=== PATIENT | male | born 1955 | race Caucasian/White ===

== ENCOUNTER 2017-04-17 12:38 | Observation (INO) | payer OTHER ==
[~2017-04-17] VITALS: Ht 175.3 cm; Wt 93.2 kg
[~2017-04-17 12:38] MED LIST: ACET325; ACET325 PO; BISA10S; BISA10S PR; BISA5EC; BISA5EC PO; CALCA500CH PO; CALCAVITDA; CHLORHEXIDINE PO; CHOL10002 PO; CLINGEL TOP; Cipro500 MG PO; DOC250; DOC250 PO; GLYCERIN1 EACH PR; GUAI100SY PO; Golytely Solu4000 ML PO; HYDACE5 PO; HYDACE7.5; HYDR-86 PO; Hydrocodone-Ap1 EA20 PO; LAVAP17G PO; LINZESS145 MCG PO; MAGOXI400; MAGOXI400 PO; MULVITA; MULVITMIND PO; Magnesium Citr296 ML PO; Milk Of Ma400 MG/5 M PO; ONDA4 PO; ONDA4ODT MM; POLY17UD PO; PROACE100; QUET100; QUET100 PO; QUET25 PO; QUET300; QUET300 PO; QUETIAPINE FUMA50 MG PO; RXONDA4ODT MM; SERT100; SERT100 PO; SORB70L; Sorbitol473 ML PO
[2017-04-17 13:02] LABS: Source, Urine Catheter
[2017-04-17 13:08] LABS: Bilirubin, Urine Neg (Neg); Blood, Urine 5+ (Neg); Glucose Qualitative, Urine Neg (Neg); Ketones, Urine Neg (Neg); Leukocyte Esterase, Urine 1+ (Neg); Nitrite, Urine Neg (Neg); Protein, Urine 2+ (Neg); Urobilinogen, Urine NORM (Normal)
[2017-04-17 13:18] LABS: Appearance, Urine Hazy (Clear); Color, Urine Red (P-Yellow)
[2017-04-17 13:19] LABS: Triple Phosphate Crystals Few /hpf
[2017-04-17 13:20] LABS: Red Blood Cells, Urine TNTC /hpf (0-2)
[2017-04-17 13:21] LABS: Bacteria Mod /hpf; Squamous Epithelial Cells Not Seen /hpf (Few)
[2017-04-17 13:22] LABS: BASOPHILS ABSOLUTE AUTO 0.01 K/mm3 (0.00-0.23); BASOPHILS PERCENT AUTO 0 % (0-2); EOSINOPHILS ABSOLUTE AUTO 0.01 K/mm3 (0.00-0.68); EOSINOPHILS PERCENT AUTO 0 % (0-6); Hematocrit 42.2 % (37.0-53.0); Hemoglobin 13.8 g/dL (13.5-17.5); IMMATURE GRAN ABSOLUTE AUTO 0.05 K/mm3 (0.00-0.10); IMMATURE GRAN PERCENT AUTO 0 % (0-1); LYMPHOCYTES ABSOLUTE AUTO 0.69 K/mm3 (0.84-5.20); LYMPHOCYTES PERCENT AUTO 5 % (21-46); MONOCYTES ABSOLUTE AUTO 0.57 K/mm3 (0.16-1.47); MONOCYTES PERCENT AUTO 4 % (4-13); Mean Corpuscular HGB 29.7 pg (26.0-34.0); Mean Corpuscular HGB Conc 32.7 g/dL (31.5-36.5); Mean Corpuscular Volume 91 fL (80-100); Mean Platelet Volume 8.9 fL (9.1-12.4); NEUTROPHILS ABSOLUTE AUTO 11.81 K/mm3 (1.96-9.15); NEUTROPHILS PERCENT AUTO 90 % (41-73); Platelet Count 231 K/mm3 (150-400); RDW Coefficient Variation 13.3 % (11.7-14.2); RDW Standard Deviation 43.8 fL (35.1-46.3); Red Blood Cell Count 4.65 M/mm3 (4.30-5.90); White Blood Cell Count 13.14 K/mm3 (4.00-11.30)
[2017-04-17 13:37] LABS: Alanine Aminotransfer (ALT/SGP 12 U/L (12-78); Albumin, Blood 2.9 g/dL (3.4-5.0); Albumin/Globulin Ratio 0.8 (0.8-1.8); Alk Phos 70 U/L (50-136); Anion Gap 9 mmol/L (6-16); Aspartate Aminotrans (AST/SGOT 13 U/L (12-37); Bilirubin, Total 0.3 mg/dL (0.1-1.0); Blood Urea Nitrogen 20 mg/dL (8-24); Bun/Creatinine Ratio 26.6 (12.0-20.0); CO2, Blood 23 mmol/L (21-32); Calcium, Blood 8.1 mg/dL (8.5-10.1); Chloride, Blood 111 mmol/L (98-108); Creatinine, Blood 0.75 mg/dL (0.60-1.20); Globulin, Blood 3.7 g/dL (2.2-4.0); Glomerular Filtration Rate >60 (60-); Glucose, Blood 135 mg/dL (70-99); Potassium, Blood 3.9 mmol/L (3.5-5.5); Sodium, Blood 143 mmol/L (136-145); Total Protein, Blood 6.6 g/dL (6.4-8.2)
[2017-04-17 13:49] LABS: Influenza A Negative (NEGATIVE); Influenza B Negative (NEGATIVE)
[2017-04-17 14:09] LABS: International Normalized Ratio 1.06
--- NOTE | 2017-04-17 18:08 | NUR ---
ADMIT PT ADMITTED FROM ED, 3X ASSIST TO SLIDE TRANSFER PT TO HOSPITAL BED, PER PT HE IS WHEELCHAIR BOUND AT BASELINE DUE TO ADVANCED MS. LUE IS CONTRACTED, SEVERE HYPEREXTENSION OF LEFT INDEX FINGER NOTED WELL, VERY MINIMAL MOVEMENT OF BLE, DENIES NUMBNESS OR TINGLING. SHORT 1-2 WORD ANSWERS, IS A&OX4, ABLE TO MAKE NEEDS KNOWN. VSS, PT ORIENTED TO ROOM, CALL LIGHT AND POC, IV FLUIDS FROM ED INFUSING ON TRANSFER, WILL FINISH CURRENT BAG, WILL CONTINUE TO MONITOR.
--- NOTE | 2017-04-18 04:43 | NUR ---
04/18/17 0445 SHIFT SUMMARY SLEPT WELL IV INFUSING AT 100 ML PER HOUR.URINE REMAINS BROWN. HAD A VERY SOFT INCONTINENT STOOL AND I HAVE HELD HIS LAXATIVES AND mIRLAX. WOUND ON LEFT BUTTOCK WAS CLEANED AND PICTURES WERE TAKEN AND MEPLIZ WAS APPLIED. IV BOTH INFILTERED AND WERE REMOVED AND NEW IV WAS PLACED IN RIGHT HAND. + HE IS ABLE TO USE HIS RIGHT HAND AND USE CALL LIGHT.
[2017-04-18 04:45] LABS: Hematocrit 40.1 % (37.0-53.0); Mean Corpuscular HGB 29.6 pg (26.0-34.0); Mean Corpuscular HGB Conc 32.4 g/dL (31.5-36.5); Mean Corpuscular Volume 91 fL (80-100); Platelet Count 226 K/mm3 (150-400); RDW Coefficient Variation 13.4 % (11.7-14.2); RDW Standard Deviation 44.6 fL (35.1-46.3); Red Blood Cell Count 4.39 M/mm3 (4.30-5.90); White Blood Cell Count 11.24 K/mm3 (4.00-11.30)
[2017-04-18 05:07] LABS: Anion Gap 5 mmol/L (6-16); Blood Urea Nitrogen 20 mg/dL (8-24); Bun/Creatinine Ratio 26.8 (12.0-20.0); CO2, Blood 27 mmol/L (21-32); Calcium, Blood 8.4 mg/dL (8.5-10.1); Chloride, Blood 114 mmol/L (98-108); Creatinine, Blood 0.75 mg/dL (0.60-1.20); Glomerular Filtration Rate >60 (60-); Glucose, Blood 87 mg/dL (70-99); Potassium, Blood 4.2 mmol/L (3.5-5.5); Sodium, Blood 146 mmol/L (136-145)
[2017-04-18 10:58] LABS: Anion Gap 7 mmol/L (6-16); Blood Urea Nitrogen 19 mg/dL (8-24); Bun/Creatinine Ratio 24.4 (12.0-20.0); CO2, Blood 23 mmol/L (21-32); Calcium, Blood 8.7 mg/dL (8.5-10.1); Chloride, Blood 111 mmol/L (98-108); Creatinine, Blood 0.78 mg/dL (0.60-1.20); Glomerular Filtration Rate >60 (60-); Glucose, Blood 134 mg/dL (70-99); Sodium, Blood 141 mmol/L (136-145)
--- NOTE | 2017-04-18 16:39 | NUR ---
Shift summary Patient catheter was irrigated twice this shift. Sediment in Tian tubing. MD aware. Patient was up in a recliner for most of the day. Tian catheter appears to be draining at urethra. MD aware. Patient has denied pain. Sore on coccyx covered in Mepilex. Photos in chart. Call light within patient reach.
--- NOTE | 2017-04-19 05:00 | NUR ---
04/19/17 0500 shift summary no problem since the beginning of the shift with finch cath < no Irrigation> no c\o pain. no c\o of pain or discomfort. dressing on buttock no changed.
[2017-04-19 05:27] LABS: Albumin, Blood 2.5 g/dL (3.4-5.0); Anion Gap 8 mmol/L (6-16); Blood Urea Nitrogen 14 mg/dL (8-24); CO2, Blood 25 mmol/L (21-32); Calcium, Blood 8.2 mg/dL (8.5-10.1); Chloride, Blood 109 mmol/L (98-108); Glomerular Filtration Rate >60 (60-); Glucose, Blood 105 mg/dL (70-99); Phosphorus, Blood 4.3 mg/dL (2.5-4.9); Potassium, Blood 3.2 mmol/L (3.5-5.5); Sodium, Blood 142 mmol/L (136-145)
--- NOTE | 2017-04-19 14:32 | NUR ---
DISCHARGING TO [facility]. REPORT CALLED TO KRISTI. MECHANICAL LIFT IN TO W/C. TO [facility] VIA W/C.
[2017-04-28] MEDS ORDERED: MEROPENEM-1 GM/50 ML IV (12:08)
[2018-02-06] MEDS ORDERED: CLIN1TS (17:34)
[2018-02-06] MEDS ORDERED: Biscolax10 MG PR (17:35)
[2018-02-06] MEDS ORDERED: CLIN1TS TOP (17:36)
[2018-02-06] MEDS ORDERED: ENEMA READY TO133 ML PR (17:36)
[2018-02-06] MEDS ORDERED: Magnesium Citr296 ML PO (17:37)
[2018-02-06] MEDS ORDERED: PERIDEX15 ML PO (17:47)
[2018-02-06] MEDS ORDERED: Norco 10-325 T1 EACH PO (17:47)
[2018-02-22] MEDS ORDERED: Hair, Skin & N1 EACH PO (13:40)
[2018-02-22] MEDS ORDERED: SORBITOL1 ML PO (13:45)
[2018-02-22] MEDS ORDERED: Calcium Carbon500 M1 PO (13:48)
[2018-03-10] MEDS ORDERED: GLYCPS PR (22:38)
[2018-03-11] MEDS ORDERED: Dulcolax5 MG PO (02:33)
[2018-03-14] MEDS ORDERED: DOXY100 PO (13:02)
[2018-03-14] MEDS ORDERED: SACC250C PO (13:02)
[2018-03-14] MEDS ORDERED: LEVFLO500 PO (13:02)
[2018-04-03] MEDS ORDERED: QUET25 PO (10:25)
[2018-04-03] MEDS ORDERED: Keflex500 MG PO (12:44)
[2018-04-03] MEDS ORDERED: LEVFLO500 PO (12:44)
== END 2017-04-19 14:25 ==
LOC: ER 12:38 → MEDS 12:39 → ENPENDDIS 04-19 08:30 → MEDS 04-19 14:25
PROVIDERS: Emergency Medicine; ADMIT Internal Medicine
DX: E86.0 Dehydration (principal); E87.2 Acidosis; N13.30 Unspecified hydronephrosis; N39.0 Urinary tract infection, site not specified; R33.9 Retention of urine, unspecified; G35 Multiple sclerosis; F32.3 Major depressive disorder, single episode, severe with psychotic features; G89.4 Chronic pain syndrome; K59.09 Other constipation; Z90.89 Acquired absence of other organs; Z88.2 Allergy status to sulfonamides; Z79.899 Other long term (current) drug therapy; Z98.890 Other specified postprocedural states
CPT/HCPCS: 36415; 51702; 71010; 76770; 80048; 80053; 80069; 81001; 83605; 85025; 85027; 85610; 85730; 87040; 87077; 87086; 87804; 93005; 93010; 96361; 96365; 96372; 99285; G0378; J0696; J1650; J7030; J7070

== ENCOUNTER → 2017-09-25 | Outpatient (CLI) | payer OTHER ==
[~2017-09-25] MED LIST changes: +LEVO750 PO; +MEROPENEM-1 GM/50 ML IV; +Tylenol325 MG PO
[2017-09-25 13:46] LABS: Stool Occult Bld Immuno 1 Positive (NEGATIVE)
== END ==
LOC: LAB 12:06 → LAB SHORT 12:06
PROVIDERS: Registered Nurse
DX: Z12.11 Encounter for screening for malignant neoplasm of colon (principal)
CPT/HCPCS: G0328

== ENCOUNTER → 2017-09-25 | Outpatient (CLI) | payer OTHER ==
[2017-09-25 22:52] LABS: Appearance, Urine Cloudy (Clear); Bilirubin, Urine Neg (Neg); Blood, Urine 4+ (Neg); Color, Urine Yellow (P-Yellow); Glucose Qualitative, Urine Neg (Neg); Ketones, Urine Neg (Neg); Leukocyte Esterase, Urine 3+ (Neg); Nitrite, Urine Pos (Neg); Protein, Urine 2+ (Neg); Specific Gravity, Urine 1.015 (1.003-1.022); Urobilinogen, Urine NORM (Normal)
[2017-09-25 23:07] LABS: White Blood Cells, Urine TNTC /hpf (0-5)
[2017-09-25 23:08] LABS: Bacteria Many /hpf; Squamous Epithelial Cells Not Seen /hpf (Few)
== END ==
LOC: EDSTATUS 11:35 → LAB RH 21:40
PROVIDERS: Registered Nurse
DX: N39.0 Urinary tract infection, site not specified (principal)
CPT/HCPCS: 81001; 87077; 87086; 87147; 87186

== ENCOUNTER 2017-09-27 16:31 | Emergency (ER) | payer OTHER ==
[~2017-09-27] VITALS: Ht 185.4 cm; Wt 90.7 kg
[~2017-09-27 16:31] MED LIST changes: -LEVO750 PO; -Tylenol325 MG PO
[2017-09-27 17:10] LABS: BASOPHILS ABSOLUTE AUTO 0.06 K/mm3 (0.00-0.23); BASOPHILS PERCENT AUTO 1 % (0-2); EOSINOPHILS ABSOLUTE AUTO 0.21 K/mm3 (0.00-0.68); EOSINOPHILS PERCENT AUTO 2 % (0-6); Hematocrit 43.8 % (37.0-53.0); Hemoglobin 14.6 g/dL (13.5-17.5); IMMATURE GRAN ABSOLUTE AUTO 0.05 K/mm3 (0.00-0.10); IMMATURE GRAN PERCENT AUTO 1 % (0-1); LYMPHOCYTES ABSOLUTE AUTO 2.53 K/mm3 (0.84-5.20); LYMPHOCYTES PERCENT AUTO 23 % (21-46); MONOCYTES PERCENT AUTO 6 % (4-13); Mean Corpuscular HGB Conc 33.3 g/dL (31.5-36.5); Mean Corpuscular Volume 87 fL (80-100); Mean Platelet Volume 8.8 fL (9.1-12.4); NEUTROPHILS ABSOLUTE AUTO 7.56 K/mm3 (1.96-9.15); NEUTROPHILS PERCENT AUTO 68 % (41-73); Platelet Count 284 K/mm3 (150-400); RDW Standard Deviation 40.9 fL (35.1-46.3); Red Blood Cell Count 5.03 M/mm3 (4.30-5.90); White Blood Cell Count 11.11 K/mm3 (4.00-11.30)
[2017-09-27 17:30] LABS: Alanine Aminotransfer (ALT/SGP 19 U/L (12-78); Albumin, Blood 3.5 g/dL (3.4-5.0); Albumin/Globulin Ratio 0.7 (0.8-1.8); Alk Phos 77 U/L (50-136); Anion Gap 7 mmol/L (6-16); Aspartate Aminotrans (AST/SGOT 12 U/L (12-37); Bilirubin, Total 0.4 mg/dL (0.1-1.0); Blood Urea Nitrogen 20 mg/dL (8-24); Bun/Creatinine Ratio 28.1 (12.0-20.0); CO2, Blood 28 mmol/L (21-32); Calcium, Blood 9.1 mg/dL (8.5-10.1); Chloride, Blood 105 mmol/L (98-108); Creatinine, Blood 0.71 mg/dL (0.60-1.20); Globulin, Blood 4.8 g/dL (2.2-4.0); Glomerular Filtration Rate >60 (60-); Glucose, Blood 90 mg/dL (70-99); Potassium, Blood 3.9 mmol/L (3.5-5.5); Sodium, Blood 140 mmol/L (136-145); Total Protein, Blood 8.3 g/dL (6.4-8.2); Troponin I <0.015 ng/mL (0.000-0.040)
[2017-09-27] MEDS ORDERED: LEVO750 PO (18:54)
[2017-09-27] MEDS ORDERED: Tylenol325 MG PO (18:54)
== END 2017-09-27 20:50 | disposition home or self-care (01) ==
LOC: ER 16:31
PROVIDERS: Emergency Medicine
DX: J18.9 Pneumonia, unspecified organism (principal); N39.0 Urinary tract infection, site not specified; G35 Multiple sclerosis; F32.9 Major depressive disorder, single episode, unspecified
CPT/HCPCS: 36415; 51798; 71045; 80053; 83605; 84484; 85025; 93005; 93010; J1956; J7120

== ENCOUNTER → 2017-11-08 | Outpatient (CLI) | payer OTHER ==
[~2017-11-08] MED LIST changes: +LEVO750 PO; +Tylenol325 MG PO
[2017-11-08 14:12] LABS: Source, Urine Catheter
[2017-11-08 14:27] LABS: Appearance, Urine Cloudy (Clear); Bilirubin, Urine Neg (Neg); Blood, Urine 5+ (Neg); Color, Urine Yellow (P-Yellow); Glucose Qualitative, Urine Neg (Neg); Ketones, Urine Neg (Neg); Leukocyte Esterase, Urine 3+ (Neg); Nitrite, Urine Pos (Neg); Protein, Urine 3+ (Neg); Specific Gravity, Urine 1.015 (1.003-1.022); Urobilinogen, Urine NORM (Normal)
[2017-11-08 15:09] LABS: Triple Phosphate Crystals Mod /hpf
[2017-11-08 15:10] LABS: Calcium Oxalate Crystals Few /hpf; White Blood Cells, Urine TNTC /hpf (0-5)
[2017-11-08 15:11] LABS: Bacteria Many /hpf; Squamous Epithelial Cells Not Seen /hpf (Few)
== END ==
LOC: EDSTATUS 09:17 → LAB RH 12:00
PROVIDERS: Registered Nurse
DX: N39.0 Urinary tract infection, site not specified (principal); R31.9 Hematuria, unspecified
CPT/HCPCS: 81001; 87077; 87086; 87186

== ENCOUNTER → 2017-12-01 | Outpatient (CLI) | payer OTHER ==
[2017-12-02 13:27] LABS: Stool Occult Bld Immuno 1 Negative (NEGATIVE)
== END ==
LOC: LAB SHORT 15:00 → LAB 15:00
PROVIDERS: Registered Nurse
DX: Z12.11 Encounter for screening for malignant neoplasm of colon (principal)
CPT/HCPCS: G0328

== ENCOUNTER → 2018-01-21 | Outpatient (CLI) | payer OTHER ==
[2018-01-21 09:52] LABS: Source, Urine Catheter
[2018-01-21 10:16] LABS: Appearance, Urine Turbid (Clear); Bilirubin, Urine Neg (Neg); Blood, Urine 5+ (Neg); Color, Urine Red (P-Yellow); Glucose Qualitative, Urine Neg (Neg); Ketones, Urine Neg (Neg); Leukocyte Esterase, Urine 3+ (Neg); Nitrite, Urine Neg (Neg); Protein, Urine 3+ (Neg); Specific Gravity, Urine 1.015 (1.003-1.022); Urobilinogen, Urine NORM (Normal)
[2018-01-21 10:26] LABS: Bacteria Many /hpf; Red Blood Cells, Urine TNTC /hpf (0-2); Squamous Epithelial Cells Few /hpf (Few); White Blood Cells, Urine TNTC /hpf (0-5)
== END ==
LOC: LAB RH 09:00 → LAB SHORT 09:00
PROVIDERS: Registered Nurse
DX: R31.9 Hematuria, unspecified (principal)
CPT/HCPCS: 81001; 87077; 87086; 87186

== ENCOUNTER → 2018-02-01 | Outpatient (CLI) | payer OTHER ==
[~2018-02-01] MED LIST changes: +Biscolax10 MG RC; +CLIN1TS; +CVS DISPOSABLE399 ML; +HYDR1TAB94; +MAGNESIUM CITR100 MG; +MERREM1 GM IV; +MIRALAX17 GM PO; +PERIDEX15 ML; +QUET200 PO; +VENL75ER PO
[2018-02-05 13:36] LABS: Stool Occult Bld Immuno 1 Negative (NEGATIVE)
== END ==
LOC: LAB SHORT 14:22 → LAB 14:22 → LAB SHORT 02-04 14:22 → LAB FUT 09-24 13:45
PROVIDERS: Registered Nurse
DX: Z12.11 Encounter for screening for malignant neoplasm of colon (principal)
CPT/HCPCS: G0328

== ENCOUNTER → 2018-02-04 | Outpatient (CLI) | payer OTHER ==
[2018-02-04 10:07] LABS: Source, Urine Catheter
[2018-02-04 11:06] LABS: Bilirubin, Urine Neg (Neg); Blood, Urine 4+ (Neg); Glucose Qualitative, Urine Neg (Neg); Ketones, Urine Neg (Neg); Leukocyte Esterase, Urine 3+ (Neg); Nitrite, Urine Neg (Neg); Protein, Urine 3+ (Neg); Urobilinogen, Urine NORM (Normal)
[2018-02-04 11:32] LABS: Appearance, Urine Turbid (Clear); Color, Urine Yellow (P-Yellow)
[2018-02-04 11:38] LABS: Red Blood Cells, Urine 0-2 /hpf (0-2); Squamous Epithelial Cells Few /hpf (Few)
[2018-02-04 11:39] LABS: Amorphous Mod (0-Heavy)
[2018-02-04 11:43] LABS: Bacteria Mod /hpf; White Blood Cells, Urine TNTC /hpf (0-5)
== END ==
LOC: LAB RH 10:06 → EDSTATUS 11:43
PROVIDERS: Registered Nurse
DX: N39.0 Urinary tract infection, site not specified (principal)
CPT/HCPCS: 81001; 87077; 87086; 87186

== ENCOUNTER 2018-02-06 17:17 | Inpatient (IN) | payer OTHER ==
[~2018-02-06] VITALS: Ht 188 cm; Wt 83.5 kg
[~2018-02-06 17:17] MED LIST changes: -Biscolax10 MG RC; -CLIN1TS; -CVS DISPOSABLE399 ML; -HYDR1TAB94; -MAGNESIUM CITR100 MG; -MERREM1 GM IV; -MIRALAX17 GM PO; -PERIDEX15 ML; -QUET200 PO; -VENL75ER PO
[2018-02-06] MEDS ORDERED: CLIN1TS ×2 (17:34→17:36)
[2018-02-06] MEDS ORDERED: ACET325 PO (17:35)
[2018-02-06] MEDS ORDERED: Biscolax10 MG RC (17:35)
[2018-02-06] MEDS ORDERED: CVS DISPOSABLE399 ML (17:36)
[2018-02-06] MEDS ORDERED: BISA5EC PO (17:36)
[2018-02-06] MEDS ORDERED: LINZESS145 MCG PO (17:37)
[2018-02-06] MEDS ORDERED: MAGNESIUM CITR100 MG (17:37)
[2018-02-06] MEDS ORDERED: MAGOXI400 PO (17:38)
[2018-02-06] MEDS ORDERED: Milk Of Ma400 MG/5 M PO (17:40)
[2018-02-06] MEDS ORDERED: MIRALAX17 GM PO (17:40)
[2018-02-06 17:43] LABS: BASOPHILS ABSOLUTE AUTO 0.05 K/mm3 (0.00-0.23); BASOPHILS PERCENT AUTO 1 % (0-2); EOSINOPHILS ABSOLUTE AUTO 0.03 K/mm3 (0.00-0.68); EOSINOPHILS PERCENT AUTO 0 % (0-6); Hemoglobin 12.5 g/dL (13.5-17.5); IMMATURE GRAN ABSOLUTE AUTO 0.03 K/mm3 (0.00-0.10); IMMATURE GRAN PERCENT AUTO 0 % (0-1); LYMPHOCYTES ABSOLUTE AUTO 0.97 K/mm3 (0.84-5.20); LYMPHOCYTES PERCENT AUTO 11 % (21-46); MONOCYTES ABSOLUTE AUTO 0.56 K/mm3 (0.16-1.47); MONOCYTES PERCENT AUTO 6 % (4-13); Mean Corpuscular HGB 29.2 pg (26.0-34.0); Mean Corpuscular HGB Conc 32.1 g/dL (31.5-36.5); Mean Corpuscular Volume 91 fL (80-100); Mean Platelet Volume 8.3 fL (9.1-12.4); NEUTROPHILS ABSOLUTE AUTO 7.13 K/mm3 (1.96-9.15); NEUTROPHILS PERCENT AUTO 81 % (41-73); Platelet Count 231 K/mm3 (150-400); RDW Coefficient Variation 12.8 % (11.7-14.2); RDW Standard Deviation 42.5 fL (35.1-46.3); Red Blood Cell Count 4.28 M/mm3 (4.30-5.90); White Blood Cell Count 8.77 K/mm3 (4.00-11.30)
[2018-02-06] MEDS ORDERED: HYDR1TAB94 (17:47)
[2018-02-06] MEDS ORDERED: PERIDEX15 ML (17:47)
[2018-02-06] MEDS ORDERED: VENL75ER PO (17:48)
[2018-02-06] MEDS ORDERED: QUET200 PO (17:48)
[2018-02-06] MEDS ORDERED: QUET25 PO (17:48)
[2018-02-06 17:53] LABS: International Normalized Ratio 1.05; Prothrombin Time Results 10.8 Sec (9.7-11.5)
[2018-02-06 18:02] LABS: Alanine Aminotransfer (ALT/SGP 23 U/L (12-78); Albumin, Blood 2.8 g/dL (3.4-5.0); Albumin/Globulin Ratio 0.5 (0.8-1.8); Alk Phos 85 U/L (50-136); Anion Gap 5 mmol/L (6-16); Aspartate Aminotrans (AST/SGOT 17 U/L (12-37); Bilirubin, Total 0.4 mg/dL (0.1-1.0); Blood Urea Nitrogen 16 mg/dL (8-24); Bun/Creatinine Ratio 17.6 (12.0-20.0); CO2, Blood 30 mmol/L (21-32); Calcium, Blood 8.8 mg/dL (8.5-10.1); Chloride, Blood 104 mmol/L (98-108); Creatinine, Blood 0.91 mg/dL (0.60-1.20); Globulin, Blood 5.1 g/dL (2.2-4.0); Glomerular Filtration Rate >60 (60-); Glucose, Blood 102 mg/dL (70-99); Sodium, Blood 139 mmol/L (136-145); Total Protein, Blood 7.9 g/dL (6.4-8.2)
[2018-02-07 05:26] LABS: Hematocrit 36.1 % (37.0-53.0); Hemoglobin 11.6 g/dL (13.5-17.5); Mean Corpuscular HGB 29.1 pg (26.0-34.0); Mean Corpuscular HGB Conc 32.1 g/dL (31.5-36.5); Mean Corpuscular Volume 91 fL (80-100); Mean Platelet Volume 8.8 fL (9.1-12.4); Platelet Count 204 K/mm3 (150-400); RDW Coefficient Variation 12.9 % (11.7-14.2); RDW Standard Deviation 42.8 fL (35.1-46.3); Red Blood Cell Count 3.99 M/mm3 (4.30-5.90)
[2018-02-07 05:50] LABS: Alanine Aminotransfer (ALT/SGP 22 U/L (12-78); Albumin, Blood 2.4 g/dL (3.4-5.0); Albumin/Globulin Ratio 0.5 (0.8-1.8); Alk Phos 75 U/L (50-136); Anion Gap 7 mmol/L (6-16); Aspartate Aminotrans (AST/SGOT 17 U/L (12-37); Bilirubin, Total 0.5 mg/dL (0.1-1.0); Blood Urea Nitrogen 13 mg/dL (8-24); CO2, Blood 25 mmol/L (21-32); Calcium, Blood 7.6 mg/dL (8.5-10.1); Chloride, Blood 111 mmol/L (98-108); Creatinine, Blood 0.81 mg/dL (0.60-1.20); Globulin, Blood 4.6 g/dL (2.2-4.0); Glomerular Filtration Rate >60 (60-); Glucose, Blood 88 mg/dL (70-99); Sodium, Blood 143 mmol/L (136-145)
[2018-02-10 04:41] LABS: BASOPHILS ABSOLUTE AUTO 0.04 K/mm3 (0.00-0.23); BASOPHILS PERCENT AUTO 1 % (0-2); EOSINOPHILS ABSOLUTE AUTO 0.25 K/mm3 (0.00-0.68); EOSINOPHILS PERCENT AUTO 5 % (0-6); Hematocrit 42.5 % (37.0-53.0); IMMATURE GRAN ABSOLUTE AUTO 0.05 K/mm3 (0.00-0.10); IMMATURE GRAN PERCENT AUTO 1 % (0-1); LYMPHOCYTES PERCENT AUTO 46 % (21-46); MONOCYTES PERCENT AUTO 13 % (4-13); Mean Corpuscular HGB 28.7 pg (26.0-34.0); Mean Corpuscular HGB Conc 32.9 g/dL (31.5-36.5); NEUTROPHILS ABSOLUTE AUTO 1.58 K/mm3 (1.96-9.15); NEUTROPHILS PERCENT AUTO 34 % (41-73); RDW Coefficient Variation 12.4 % (11.7-14.2); RDW Standard Deviation 39.7 fL (35.1-46.3); Red Blood Cell Count 4.87 M/mm3 (4.30-5.90); White Blood Cell Count 4.62 K/mm3 (4.00-11.30)
[2018-02-10 04:45] LABS: Mean Corpuscular Volume 87 fL (80-100); Mean Platelet Volume 9.8 fL (9.1-12.4); Platelet Count 194 K/mm3 (150-400)
[2018-02-10 05:00] LABS: Anion Gap 7 mmol/L (6-16); Blood Urea Nitrogen 11 mg/dL (8-24); CO2, Blood 28 mmol/L (21-32); Calcium, Blood 8.5 mg/dL (8.5-10.1); Chloride, Blood 107 mmol/L (98-108); Creatinine, Blood 0.61 mg/dL (0.60-1.20); Glomerular Filtration Rate >60 (60-); Glucose, Blood 94 mg/dL (70-99); Potassium, Blood 3.9 mmol/L (3.5-5.5); Sodium, Blood 142 mmol/L (136-145)
[2018-02-11] MEDS ORDERED: MAGOXI400 PO (15:37)
[2018-02-11] MEDS ORDERED: MIRALAX17 GM PO (15:39)
[2018-02-11] MEDS ORDERED: MERREM1 GM IV (15:41)
== END 2018-02-11 17:41 | DRG 871 ==
LOC: ER 17:17 → MEDS 20:25
PROVIDERS: Emergency Medicine; Hospitalist; Internal Medicine
DX: A41.51 Sepsis due to Escherichia coli [E. coli] (principal); G82.50 Quadriplegia, unspecified; N13.30 Unspecified hydronephrosis; N39.0 Urinary tract infection, site not specified; D63.8 Anemia in other chronic diseases classified elsewhere; G35 Multiple sclerosis; F32.9 Major depressive disorder, single episode, unspecified; G89.4 Chronic pain syndrome; Z16.12 Extended spectrum beta lactamase (ESBL) resistance; Z74.01 Bed confinement status; Z87.440 Personal history of urinary (tract) infections; Z79.899 Other long term (current) drug therapy; Z88.2 Allergy status to sulfonamides
CPT/HCPCS: 36415; 71045; 76770; 80048; 80053; 83605; 85025; 85027; 85610; 85730; 87040; 87077; 87186; 93005; 93010; 96365; 99285-25; J0694; J0697; J1650; J2185; J7030; J7040

== ENCOUNTER → 2018-04-25 | Outpatient (CLI) | payer OTHER ==
[~2018-04-25] MED LIST changes: +Biscolax10 MG PR; +CLIN1TS; +CLIN1TS TOP; +Calcium Carbon500 M1 PO; +DOXY100 PO; +Dulcolax5 MG PO; +ENEMA READY TO133 ML PR; +GLYCPS PR; +Hair, Skin & N1 EACH PO; +Keflex500 MG PO; +LEVFLO500 PO; +MERREM1 GM IV; +MIRALAX17 GM PO; +Norco 10-325 T1 EACH PO; +PERIDEX15 ML PO; +QUET200 PO; +SACC250C PO; +SORBITOL1 ML PO; +VENL75ER PO
[2018-04-25 09:25] LABS: Appearance, Urine Cloudy (Clear); Bilirubin, Urine Neg (Neg); Blood, Urine 5+ (Neg); Color, Urine Yellow (P-Yellow); Glucose Qualitative, Urine Neg (Neg); Ketones, Urine Neg (Neg); Leukocyte Esterase, Urine Neg (Neg); Nitrite, Urine Neg (Neg); Protein, Urine 3+ (Neg); Urobilinogen, Urine NORM (Normal)
[2018-04-25 10:01] LABS: Red Blood Cells, Urine 25-50 /hpf (0-2); Squamous Epithelial Cells Few /hpf (Few); White Blood Cells, Urine 0-2 /hpf (0-5)
[2018-04-25 10:02] LABS: Amorphous Heavy (0-Heavy); Bacteria Few /hpf; Calcium Oxalate Crystals Rare /hpf
== END ==
LOC: LAB RH 08:24 → EDSTATUS 09:31
PROVIDERS: Registered Nurse
DX: N39.0 Urinary tract infection, site not specified (principal)
CPT/HCPCS: 81001

== ENCOUNTER → 2018-05-10 | Outpatient (CLI) | payer OTHER ==
[2018-05-10 10:46] LABS: Source, Urine Catheter
[2018-05-10 10:57] LABS: Bilirubin, Urine Neg (Neg); Blood, Urine 3+ (Neg); Glucose Qualitative, Urine Neg (Neg); Ketones, Urine Neg (Neg); Leukocyte Esterase, Urine 3+ (Neg); Nitrite, Urine Pos (Neg); Protein, Urine 3+ (Neg); Specific Gravity, Urine 1.015 (1.003-1.022); Urobilinogen, Urine 1+ (Normal)
[2018-05-10 11:12] LABS: Color, Urine Yellow (P-Yellow)
[2018-05-10 11:13] LABS: Appearance, Urine Cloudy (Clear)
[2018-05-10 11:14] LABS: Bacteria Many /hpf; Red Blood Cells, Urine 50-100 /hpf (0-2); Squamous Epithelial Cells Not Seen /hpf (Few); White Blood Cells, Urine TNTC /hpf (0-5)
== END ==
LOC: EDSTATUS 09:33 → LAB RH 10:22
PROVIDERS: Nurse Practitioner Family
DX: N39.0 Urinary tract infection, site not specified (principal)
CPT/HCPCS: 81001; 87077; 87086; 87186

== ENCOUNTER 2019-02-11 18:39 | Inpatient (IN) | payer OTHER ==
[~2019-02-11] VITALS: Ht 177.8 cm; Wt 86.3 kg
[~2019-02-11 18:39] MED LIST changes: -Biscolax10 MG PR; -GLYCPS PR
[2019-02-11 19:17] LABS: Base Excess Venous -0.5 mmol/L; Bicarbonate Venous 21.9 mmol/L (24.0-30.0); PCO2 Venous 62.8 mmHg (38-42); PO2 Venous 44.8 mmHg (38-42)
[2019-02-11 19:17] LABS: BASOPHILS ABSOLUTE AUTO 0.03 K/mm3 (0.00-0.23); BASOPHILS PERCENT AUTO 1 % (0-2); EOSINOPHILS ABSOLUTE AUTO 0.07 K/mm3 (0.00-0.68); EOSINOPHILS PERCENT AUTO 2 % (0-6); Hematocrit 49.3 % (37.0-53.0); Hemoglobin 15.7 g/dL (13.5-17.5); Mean Corpuscular HGB 28.9 pg (26.0-34.0); Mean Corpuscular HGB Conc 31.8 g/dL (31.5-36.5); Mean Corpuscular Volume 91 fL (80-100); Platelet Count 283 K/mm3 (150-400); RDW Coefficient Variation 13.1 % (11.7-14.2); RDW Standard Deviation 43.6 fL (35.1-46.3); Red Blood Cell Count 5.43 M/mm3 (4.30-5.90); White Blood Cell Count 4.78 K/mm3 (4.00-11.30)
[2019-02-11 19:18] LABS: pH Blood Venous 7.24 (7.34-7.37)
[2019-02-11 19:22] LABS: IMMATURE GRAN ABSOLUTE AUTO 0.04 K/mm3 (0.00-0.10); IMMATURE GRAN PERCENT AUTO 1 % (0-1); LYMPHOCYTES ABSOLUTE AUTO 1.03 K/mm3 (0.84-5.20); LYMPHOCYTES PERCENT AUTO 22 % (21-46); MONOCYTES ABSOLUTE AUTO 0.02 K/mm3 (0.16-1.47); MONOCYTES PERCENT AUTO 0 % (4-13); NEUTROPHILS ABSOLUTE AUTO 3.59 K/mm3 (1.96-9.15); NEUTROPHILS PERCENT AUTO 75 % (41-73)
[2019-02-11 19:34] LABS: BAND PERCENT MAN 10 % (0-8); BASOPHILS PERCENT MAN 0 % (0-2); EOSINOPHILS PERCENT MAN 0 % (0-6); LYMPHOCYTES PERCENT MAN 19 % (21-46); METAMYELOCYTE ABSOLUTE MAN 0.04 K/mm3 (0.00-0.00); METAMYELOCYTE PERCENT MAN 1 % (0-0); MONOCYTES PERCENT MAN 0 % (4-13); NEUTROPHILS ABSOLUTE MAN 3.82 K/mm3 (1.96-9.15); SEG NEUTROPHILS PERCENT MAN 70 % (41-73); TOTAL CELLS COUNTED 100
[2019-02-11 19:38] LABS: Alanine Aminotransfer (ALT/SGP 18 U/L (12-78); Albumin, Blood 3.7 g/dL (3.4-5.0); Albumin/Globulin Ratio 0.8 (0.8-1.8); Alk Phos 124 U/L (50-136); Anion Gap 8 mmol/L (6-16); Aspartate Aminotrans (AST/SGOT 15 U/L (12-37); Bilirubin, Total 0.7 mg/dL (0.1-1.0); Blood Urea Nitrogen 19 mg/dL (8-24); Bun/Creatinine Ratio 24.2 (12.0-20.0); CO2, Blood 26 mmol/L (21-32); Chloride, Blood 105 mmol/L (98-108); Creatinine, Blood 0.79 mg/dL (0.60-1.20); Globulin, Blood 4.5 g/dL (2.2-4.0); Glomerular Filtration Rate >60 (60-); Glucose, Blood 104 mg/dL (70-99); Potassium, Blood 4.3 mmol/L (3.5-5.5); Sodium, Blood 139 mmol/L (136-145); Total Protein, Blood 8.2 g/dL (6.4-8.2); Troponin I <0.015 ng/mL (0.000-0.040)
[2019-02-11] MEDS ORDERED: QUET200 PO (19:47)
[2019-02-11 22:01] LABS: PCO2 Arterial 32.9 mmHg (35-45); PO2 Arterial 83.9 mmHg (80-100)
--- NOTE | 2019-02-11 23:30 | NUR ---
ADMIT NOTE; ADMIT 64 YEAR OLD MALE TO ICU 11 TO HOSPITALIST CHRISTIANO [employer]ION[employer] ENGINEER PER GERONIMO VIA ER. DR HAN AT [facility] TRANSFER TP BED USING SLIDER SHEET. INTUBATED SEDATED AND RESTRAINED. VENT SETTINGS AC 16, TV 450, FIO2 50% PEEP 5, RATE 24-26, SPO2 86% LUNG SOUNDS CLEAR UPPER LOBES WITH DECREASED SOUNDS IN THE BASES. SX MOD AMT THIN CLKEAR SECREATIONS. WITH ORAL CARE. ABDPMEN SOFT ROUND WITH BOWEL SOUNDS FOUR QUADS. BEARD REPLACED BY SINDHU GUERRERO AND FLAQUITOAN SENT PAS TO L LEG PPP NO EDEMA NOTED. CONTINUE TO MONITOR AND REPORT CHANGE IN PATIENT CONDITION
[2019-02-12 00:16] LABS: Hematocrit 40.8 % (37.0-53.0); Hemoglobin 13.3 g/dL (13.5-17.5)
[2019-02-12 00:34] LABS: Source, Urine Catheter
[2019-02-12 00:37] LABS: Appearance, Urine Cloudy (Clear); Bilirubin, Urine Neg (Neg); Blood, Urine 5+ (Neg); Color, Urine Red (P-Yellow); Glucose Qualitative, Urine Neg (Neg); Ketones, Urine 1+ (Neg); Leukocyte Esterase, Urine 3+ (Neg); Nitrite, Urine Neg (Neg); Protein, Urine 3+ (Neg); Urobilinogen, Urine NORM (Normal)
[2019-02-12 00:48] LABS: Amorphous Mod (0-Heavy); Bacteria Many /hpf; Red Blood Cells, Urine TNTC /hpf (0-2); Squamous Epithelial Cells Rare /hpf (Few); White Blood Cells, Urine TNTC /hpf (0-5)
[2019-02-12] MEDS ORDERED: BISA10S PR (01:28)
[2019-02-12] MEDS ORDERED: ONDA4 PO (01:29)
[2019-02-12 03:11] LABS: Bicarbonate Venous 20.1 mmol/L (24.0-30.0); PCO2 Venous 33.6 mmHg (38-42); PO2 Venous 66.6 mmHg (38-42); pH Blood Venous 7.37 (7.34-7.37)
[2019-02-12 03:43] LABS: BASOPHILS ABSOLUTE AUTO 0.05 K/mm3 (0.00-0.23); BASOPHILS PERCENT AUTO 0 % (0-2); Hemoglobin 12.9 g/dL (13.5-17.5); LYMPHOCYTES ABSOLUTE AUTO 0.38 K/mm3 (0.84-5.20); LYMPHOCYTES PERCENT AUTO 2 % (21-46); MONOCYTES PERCENT AUTO 1 % (4-13); Mean Corpuscular HGB 29.2 pg (26.0-34.0); Mean Corpuscular HGB Conc 32.3 g/dL (31.5-36.5); Mean Corpuscular Volume 91 fL (80-100); Mean Platelet Volume 9.3 fL (9.1-12.4); Platelet Count 156 K/mm3 (150-400); RDW Coefficient Variation 13.2 % (11.7-14.2); RDW Standard Deviation 44.4 fL (35.1-46.3); Red Blood Cell Count 4.42 M/mm3 (4.30-5.90); White Blood Cell Count 25.21 K/mm3 (4.00-11.30)
[2019-02-12 03:45] LABS: EOSINOPHILS ABSOLUTE AUTO 0.01 K/mm3 (0.00-0.68); EOSINOPHILS PERCENT AUTO 0 % (0-6); IMMATURE GRAN ABSOLUTE AUTO 0.27 K/mm3 (0.00-0.10); IMMATURE GRAN PERCENT AUTO 1 % (0-1); NEUTROPHILS PERCENT AUTO 96 % (41-73)
[2019-02-12 04:06] LABS: Alanine Aminotransfer (ALT/SGP 27 U/L (12-78); Albumin, Blood 2.6 g/dL (3.4-5.0); Albumin/Globulin Ratio 0.8 (0.8-1.8); Alk Phos 91 U/L (50-136); Anion Gap 10 mmol/L (6-16); Aspartate Aminotrans (AST/SGOT 58 U/L (12-37); Bilirubin, Total 0.5 mg/dL (0.1-1.0); Blood Urea Nitrogen 23 mg/dL (8-24); Bun/Creatinine Ratio 23.9 (12.0-20.0); CO2, Blood 20 mmol/L (21-32); Calcium, Blood 7.2 mg/dL (8.5-10.1); Chloride, Blood 113 mmol/L (98-108); Creatinine, Blood 0.96 mg/dL (0.60-1.20); Globulin, Blood 3.2 g/dL (2.2-4.0); Glomerular Filtration Rate >60 (60-); Glucose, Blood 132 mg/dL (70-99); Potassium, Blood 3.4 mmol/L (3.5-5.5); Sodium, Blood 143 mmol/L (136-145); Total Protein, Blood 5.8 g/dL (6.4-8.2)
--- NOTE | 2019-02-12 06:30 | NUR ---
SHIFT SUMMARY: REMAINS INTUBATED SEDATED AND RESTRAINED.. VENT SETTINGS AC 16, TV 450, FIO2 50% PEEP 5, RATE 17-22, SPO2 95-97% LUNG SOUNDS CLEAR UPPER LOBES WITH DECREASED SOUNDS IN THE BASES. OG TO LIS PATENT WITH BROWN LIQUID RETURN. MODERATE AMOUNT THIN CLEAR SECREATIONS SX PER ETT AND SMALL AMT THIN CLEAR ORAL SECREATIONS WITH ORAL CARE. ABDOMENS SOFT ROUND WITH BOWEL SOUNDS FOUR QUADS. HAS HAD TWO LG SOFT BROWN STOOLS THIS SHIFT. BEARD PATENT CONTINUING TO DRAIN BLOODY URINE. PAS TO L LEG ( R LEG HAS B/P CUFF) skin warm /dry. NO EDEMA NOTED PEDAL PULSES PRESENT. LUE CONTRACTED ALSO LOWER EXTREMITIES HOWEVER NOT SEVERE. REMAINS IN SOFT WRIST RESTRAINTS TO PREVENT INADVERTENT REMOVAL OF LINES TUBES. CONTINUE TO MONITOR AND REPORT CHANGE IN PATIENT CONDITION
--- NOTE | 2019-02-12 08:00 | NUR ---
INITIAL ASSESSMENT PATIENT INTUBATED AND ON MINIMAL AMOUNT OF SEDATION. PATIENT RESPONDS TO VERBAL STIMULI, TRACKS NURSE, FOLLOWS SIMPLE COMMANDS. PATIENT ABLE TO WIGGLE BILAT TOES AND FINGERS ON R HAND. PATIENT UNABLE TO MOVE LEFT FINGERS. L HAND CONTRACTED WITH INDEX FINGER STICKING STRAIGHT OUT. HX OF MULTIPLE SCLEROSIS. PATIENT CHAIR BOUND AT BASELINE. PATIENT ALERT AND ORIENTED AT BASELINE PER BROTHER, TOREY. BILAT FOOT DROP NOTED. NO SIGNS OF PAIN OR DISCOMFORT NOTED AT THIS TIME. PATIENT HAS TEMP OF 101.4 DEGREES FAHRENHEIT. PATIENT SATTING 90% AND GREATER ON VENT SETTINGS OF AC 16, TV 450, PEEP 5, FIO2 50%. LUNGS CLEAR IN UPPER LOBES, DIMINISHED IN LOWER LOBES. SMALL AMOUNT OF THICK, YELLOW SPUTUM BEING SUCTIONED FROM ETT. PATIENT IN ST, HR IN THE LOW 100S. SBP 80S TO 90S. ABDOMEN SEVERELY DISTENDED, SOFT, NONTENDER, WITH TYMPANIC BS NOTED. PATIENT HAS BEEN HAVING XL, SOFT, BROWN BMS. OG REMOVED NOT ADVANCING EASILY AND UNABLE TO HEAR BUBBLING IN STOMACH WITH INTRODUCTION OF AIR. DR. HAN INFORMED. TEMP PROBE BEARD IN PLACE, DRAINING BURGUNDY COLORED URINE WITH LARGE AMOUNTS OF SEDIMENT NOTED. PENIS IS BLEEDING FROM URETHRA. NS INFUSING AT 15O MLS/ HOUR. PROPOFOL AT 10 MCG/ KG/ MINUTE. BED LOW, CALL LIGHT IN REACH. WILL CONTINUE TO MONITOR PATIENT FREQUENTLY THROUGHOUT SHIFT.
--- NOTE | 2019-02-12 11:04 | NUR ---
SPOKE TO DR. HAN AND UPDATED ON PATIENT STATUS. INFORMED OF AM POTASSIUM LEVEL OF 3.4. INFORMED THAT PATIENT'S PENIS IS BLEEDING. INFORMED THAT SBP IN THE 80S AND THAT PROPOFOL HAS BEEN BETWEEN 10 AND 15 MCG/ KG/ MINUTE BP IS SOFT. INFORMED THAT PATIENT HAS POSTIVE BLOOD CULTURES RETURED. INFORMED THAT PRIMARY NURSE AND CHARGE NURSE UNABLE TO PLACE OG CONTINUES TO STOP SLIGHTLY AFTER ESOPHAGUS. LOOKED AT XRAY AND STATED THAT THE FIRST TUBE SEEMED TO STOP IN ESOPHAGUS WELL. STATES SHE WILL CONSULT GI TO SEE PATIENT TOMORROW FOR ESOPHAGEAL OBSTRUCTION. 1 L NS BOLUS ORDERED FOR BP.
--- NOTE | 2019-02-12 12:53 | NUR ---
PATIENT'S BROTHER, TOREY, INFORMED OF PICC LINE INSERTION PROCEDURE. BROTHER STATES HE IS OKAY WITH IT. ALSO RECEIVED INFORMATION FOR PATIENT'S SON.
--- NOTE | 2019-02-12 16:00 | NUR ---
PATIENT RESTING QUIETLY IN BED UPON ENTERING ROOM. REMAINS ON PROPOFOL- PROP AT 10 MCG/ KG/ MINUTE. PATIENT SATTING 90% AND GREATER ON SAME VENT SETTINGS. PATIENT IN SR, HR IN THE 90S. BP STABLE ON LEVOPHED DRIP. PATIENT HAS TEMP OF 101.6- FAN PLACED ON PATIENT. BEARD NOW DRAINING DARK AMANDA COLORED URINE WITH SEDIMENT NOTED. NO OTHER ACUTE CHANGES TO NOTE ON AT THIS TIME. WILL CONTINUE TO MONITOR.
--- NOTE | 2019-02-12 19:20 | NUR ---
SHIFT SUMMARY PATIENT REMAINED INTUBATED AND ON SEDATION. PATIENT HAD TMAX OF 102.0 DEGREES FAHRENHEIT THIS SHIFT. PRN TYLENOL GIVEN. PATIENT REMAINED RESPONDING TO VERBAL STIMULI AND FOLLOWING SOME SIMPLE COMMANDS. CONTINUED TO SUCTION SMALL TO MODERATE AMOUNTS OF THICK, YELLOW SPUTUM FROM ETT. PATIENT DECREASED ON FIO2 FROM 50 TO 45% ON VENTILATOR. PATIENT REMAINED IN SR TO ST. BP SOFT THIS AM. PICC PLACED AND LEVOPHED STARTED. LEVOPHED ON STANDBY BY END OF SHIFT. PATIENT HAD 3 BMS THIS SHIFT. 2 BMS WERE XL IN SIZE, BROWN, SOFT. OG REMOVED THIS AM WOULD NOT ADVANCE PROPERLY. DR. HAN INFORMED AND GI CONSULT ORDERED FOR ESOPHAGEAL OBSTRUCTION. BEARD DRAINED BURGUNDY TO DARK AMANDA COLORED URINE WITH MUCH SEDIMENT NOTED. ADEQUATE OUTPUT. BLEEDING FROM URETHRA CONTINUES BUT IS MUCH LESS THAN AT BEGINNING OF SHIFT. NS REMAINS INFUSING AT 150 MLS/ HOUR, PROPOFOL AT 15 MCG/ KG/ MINUTE. 40 MEQ KCL GIVEN THIS SHIFT FOR POTASSIUM LEVEL OF 3.4. PATIENT APPEARS COMFORTABLE AT THIS TIME. REPORT HAS BEEN GIVEN TO ONCOMING MEDICATION TECHNICIAN NURSE.
--- NOTE | 2019-02-12 20:57 | NUR ---
ASSUMED CARE OF PT, REPORT RCV'D FROM YOLANDA DUTTA. PT INTUBATED AND SEDATED. VENT SETTINGS AC 16/450/5/45%, PROPOFOL 30 MCG/KG/MIN. PT ALERT TO VERBAL STIMULI AND ABLE TO FOLLOW DIRECTIONS (SQUEEZES RIGHT HAND", PT ASSISTS WITH ORAL CARE AND NOD APPROPRIATELY IN REQPONSE TO QUESTIONS. LEVOPHED RESTARTED AT 2 MCG/MIN D/T HYPOTENSION FROM INCREASE IN SEDATION. PER DR HAN, NO WEANING NECESSARY PT WILL NOT BE EXTUBATED UNTIL GI SEES PT. DR. AC CONTACTED FOR CONSULT. PT SKIN APPEARS PINK/FLUSHED AND FEELS WARM TO THE TOUCH. PT FEBRILE WITH TEMP OF 101.5 CURRENTLY. FAN PLACED ON BEDSIDE AND COOL CLOTHES APPLIED TO SKIN. WILL MEDICATE NECESSARY. TEMP BEARD IN PLACE, CATH CARE PERFORMED. MEATUS BLOODY, NO CHANGE SINCE ADMISSION PER DAYSHIFT NURSE. SEE FULL SHIFT ASSESSMENT.
[2019-02-13 04:14] LABS: Hematocrit 34.8 % (37.0-53.0); Hemoglobin 11.4 g/dL (13.5-17.5); Mean Corpuscular HGB 29.6 pg (26.0-34.0); Mean Corpuscular HGB Conc 32.8 g/dL (31.5-36.5); Mean Corpuscular Volume 90 fL (80-100); Mean Platelet Volume 10.1 fL (9.1-12.4); Platelet Count 114 K/mm3 (150-400); RDW Coefficient Variation 14.1 % (11.7-14.2); RDW Standard Deviation 47.1 fL (35.1-46.3); Red Blood Cell Count 3.85 M/mm3 (4.30-5.90); White Blood Cell Count 35.56 K/mm3 (4.00-11.30)
[2019-02-13 04:27] LABS: Anion Gap 7 mmol/L (6-16); Blood Urea Nitrogen 18 mg/dL (8-24); Bun/Creatinine Ratio 24.3 (12.0-20.0); CO2, Blood 22 mmol/L (21-32); Calcium, Blood 7.2 mg/dL (8.5-10.1); Chloride, Blood 114 mmol/L (98-108); Creatinine, Blood 0.74 mg/dL (0.60-1.20); Glomerular Filtration Rate >60 (60-); Glucose, Blood 93 mg/dL (70-99); Sodium, Blood 143 mmol/L (136-145)
[2019-02-13 04:39] LABS: BAND PERCENT MAN 22 % (0-8); BASOPHILS PERCENT MAN 0 % (0-2); EOSINOPHILS PERCENT MAN 0 % (0-6); LYMPHOCYTES ABSOLUTE MAN 1.42 K/mm3 (0.84-5.20); LYMPHOCYTES PERCENT MAN 4 % (21-46); MONOCYTES ABSOLUTE MAN 1.77 K/mm3 (0.16-1.47); MONOCYTES PERCENT MAN 5 % (4-13); NEUTROPHILS ABSOLUTE MAN 32.35 K/mm3 (1.96-9.15); SEG NEUTROPHILS PERCENT MAN 69 % (41-73); TOTAL CELLS COUNTED 100
[2019-02-13 04:59] LABS: PCO2 Arterial 32.5 mmHg (35-45); PO2 Arterial 80.6 mmHg (80-100); pH Blood Arterial 7.41 (7.35-7.45)
--- NOTE | 2019-02-13 06:00 | NUR ---
SHIFT SUMMARY NO ACUTE CHANGES OVERNIGHT. PT ON 15-20 MCG/KG/MIN OF PROPOFOL, WAS ALERT TO VERBAL STIMULATION AND ABLE TO FOLLOW SIMPLE COMMANDS. LEVOPHED @ 3 MCG/MIN TO MAINTAIN MAP>60. TMAX OF 102.0, CURRENT TEMP 100.5. 1250 DARK AMANDA URINARY OUTPUT WITH SEDIMENT. NO BOWEL MOVEMENTS THIS SHIFT BUT SMALL SMEAR NOTED DURING BED BATH. WILL REPORT TO DAYSHIFT NURSE.
--- NOTE | 2019-02-13 08:00 | NUR ---
INITIAL ASSESSMENT PATIENT INTUBATED AND ON SEDATION. PATIENT RESPONDS TO VERBAL STIMULI. PATIENT FOLLOWS SOME SIMPLE COMMANDS. PATIENT ABLE TO WIGGLE BILAT TOES AND R FINGERS. PATIENT UNABLE TO MOVE LEFT FINGERS. PATIENT HAS GROSS MOVEMENTS OF ALL EXTREMITIES. L HAND CONTRACTED WITH POINTER FINGER POINTED STRAIGHT OUT. PATIENT HAS NO SIGNS OF PAIN OR DISCOMFORT AT THIS TIME. PATIENT HAS TEMP OF 100.2 DEGREES FAHRENHEIT. PATIENT ON VENT SETTINGS OF AC 16, TV 450, PEEP 5, AND 35% FIO2. LUNGS CLEAR IN UPPER LOBES AND DIMINISHED IN LOWER LOBES. SMALL AMOUNT OF THIN, CLEAR SPUTUM BEING SUCTIONED FROM THE ETT. PATIENT HAS COPIOUS AMOUNT OF ORAL SECRETIONS. PATIENT IN SR TO ST, HR 80S TO LOW 100S. LEVOPHED DRIP DECREASED FROM 3 TO 2 MCG/ MINUTE. BP REMAINS STABLE. SBP IN THE LOW 100S. PATIENT HAD 21 BEAT RUN OF VTACH AT 0740 THIS AM- VITAL SIGNS REMAINED STABLE. ABDOMEN SEVERELY DISTENDED, SOFT, WITH HYPERACTIVE BS. LAST BM ON THE 2ND. PATIENT NPO. TEMP PROBE BEARD DRAINING DARK YELLOW COLORED URINE WITH SEDIMENT NOTED. SKIN PALE AND COOL TO TOUCH. SCANT AMOUNT OF BLEEDING NOTED FROM URETHRA. PATIENT HAS TUNNELING NOTED IN MEATUS FROM CHRONIC INDWELLING BEARD. PROPOFOL INFUSING AT 20 MCG/ KG/ MINUTE, NS AT 150 MLS/ HOUR. DR. VALENCIA IN TO SEE PATIENT THIS AM AND INFORMED OF WBC INCREASE FROM 25.21 TO 35.56. NO ORDERS OBTAINED. BED LOW, CALL LIGHT IN REACH. WILL CONTINUE TO MONITOR PATIENT FREQUENTLY THROUGHOUT SHIFT.
--- NOTE | 2019-02-13 12:00 | NUR ---
PATIENT HAS TEMP OF 100.2 DEGREES FAHRENHEIT. PATIENT RESTING QUIETLY IN BED, LIGHTLY SEDATED. PATIENT APPEARS COMFORTABLE WITH NO SIGNS OF PAIN OR DISCOMFORT. PATIENT REMAINS SATTING 90% AND GREATER ON SAME VENT SETTINGS. HR IN THE 80S. BP STABLE WITH SBP IN THE LOW 100S. LEVOPHED HAS BEEN ON STANDBY MOST OF THE SHIFT. NO OTHER ACUTE CHANGES TO NOTE ON AT THIS TIME. WILL CONTINUE TO MONITOR.
--- NOTE | 2019-02-13 12:42 | NUR ---
DR. HAN SWITCHED PATIENT OVER FROM AC SETTINGS TO SPONTANEOUS PRESSURE SUPPORT OF 10/5, 35% FIO2.
[2019-02-13 13:16] LABS: Vancomycin, Trough 14.5 ug/mL (5.0-10.0)
--- NOTE | 2019-02-13 15:50 | NUR ---
DR. AC AND DAY SURGERY TEAM IN ROOM TO START EGD. PROPOFOL INCREASED TO 30 MCG/ KG/ MINUTE FOR SCOPE.
--- NOTE | 2019-02-13 15:52 | NUR ---
02/13/19 1552 Brenton Hernandez 3-LEAD EKG REVIEWED WITH PHYSICIAN PRIOR TO START OF PROCEDURE. History, Chart, Medications and Allergies reviewed before start of procedure.MONITOR INTACT WITH CONTINUOUS PULSE OXIMETRY AND INTERMITTENT BP.O2 VIA VENT Bite Block Placed
--- NOTE | 2019-02-13 16:30 | NUR ---
SCOPE COMPLETE. PATIENT HAD GASTRIC ULCER. DR. AC TOOK BIOPSY. DAY SURG TEAM UNABLE TO GET OG DOWN UPON FIRST ATTEMPT. SECOND ATTEMP, DR. AC PLACED SCOPE ALONG SIDE OG TUBE AND OG TUBE WAS ABLE TO BE ADVANCED AT THIS POINT. SCOPE ABLE TO BE PULLED OUT WITHOUT PULLING OUT OG. DR. AC ORDERED FOR CHEST XRAY TO CONFIRM OG PLACEMENT. PATIENT'S BROTHER, TOREY, CALLED AND INFORMED OF HOW SCOPE PROCEDURE WENT.
--- NOTE | 2019-02-13 19:00 | NUR ---
INITIAL ASSESSMENT PATIENT REMAINED INTUBATED AND ON SEDATION. PATIENT REMAINED RESPONDING TO VERBAL STIMULI AND FOLLOWING SOME COMMANDS. PATIENT HAD TMAX OF 101.4 DEGREES FAHNREHEIT. PATIENT CHANGED TO SPONTANEOUS PRESSURE SUPPORT DURING THE DAY AND DID WELL UNTIL PLACED BACK ON AC DURING THE SCOPE. PATIENT HAD SMALL AMOUNT OF THIN, CLEAR SECRETIONS FROM ETT. COPIOUS ORAL SECRETIONS TODAY. PATIENT REMAINED IN SR TO ST, HR 70S TO LOW 100S. BP STABLE MOST OF THE DAY WITH LEVOPHED ON STANDBY UNTIL VERY END OF SHIFT WHEN PATIENT HAD TO BE PLACED BACK ON 2 MCG/ MINUTE. OG PLACED DURING SCOPE AND IS TO LIS. PATIENT DID NOT HAVE BM THIS SHIFT. PATIENT HAD ADEQUATE DARK YELLOW URINE WITH BEARD. NS AT 150 MLS/ HOUR, PROP AT 20 MCG/ KG/ MINUTE. PATIENT'S BROTHER, TOREY, CALLED TODAY TO CHECK ON PATIENT AND STATED THAT HE AND THE PATIENT'S SON, TOMAS, WILL BE HERE SUNDAY FROM OUT OF TOWN TO SEE PATIENT. REPORT HAS BEEN GIVEN TO ASSUMING TICKET SELLER NURSE.
--- NOTE | 2019-02-13 19:48 | NUR ---
ASSUMED CARE OF PT, REPORT RCV'D FROM YOLANDA DUTTA. PT INTUBATED AND SEDATED, RESPONDS TO VERBAL STIMULI AND ABLE TO FOLLOW SIMPLE COMMANDS (SQUEEZES RIGHT HAND). VENT SETTINGS AC 16/450/5/35%, PROPOFOL @ 20 MCG/KG/MIN. OGT HOOKED TO LIS. CURRENT TEMP 100.8, COOLING PACKS PLACED IN ARMPITS AND GROIN. TEMP BEARD PATENT AND DRAINING AMANDA URINE WITH SEDIMENT. LEVOPHED @ 2 MCG/MIN TO MAINTAIN MAP>65. SEE FULL SHIFT ASSESSMENT.
[2019-02-14 04:53] LABS: Hematocrit 34.5 % (37.0-53.0); Hemoglobin 11.1 g/dL (13.5-17.5); Mean Corpuscular HGB 29.4 pg (26.0-34.0); Mean Corpuscular HGB Conc 32.2 g/dL (31.5-36.5); Mean Corpuscular Volume 92 fL (80-100); Mean Platelet Volume 10.1 fL (9.1-12.4); Platelet Count 81 K/mm3 (150-400); RDW Coefficient Variation 13.9 % (11.7-14.2); RDW Standard Deviation 47.4 fL (35.1-46.3); Red Blood Cell Count 3.77 M/mm3 (4.30-5.90); White Blood Cell Count 25.61 K/mm3 (4.00-11.30)
[2019-02-14 05:18] LABS: Alanine Aminotransfer (ALT/SGP 47 U/L (12-78); Albumin/Globulin Ratio 0.6 (0.8-1.8); Alk Phos 137 U/L (50-136); Anion Gap 8 mmol/L (6-16); Aspartate Aminotrans (AST/SGOT 54 U/L (12-37); Bilirubin, Total 0.6 mg/dL (0.1-1.0); Blood Urea Nitrogen 14 mg/dL (8-24); Bun/Creatinine Ratio 24.6 (12.0-20.0); CO2, Blood 22 mmol/L (21-32); Calcium, Blood 7.3 mg/dL (8.5-10.1); Chloride, Blood 115 mmol/L (98-108); Creatinine, Blood 0.57 mg/dL (0.60-1.20); Globulin, Blood 3.4 g/dL (2.2-4.0); Glomerular Filtration Rate >60 (60-); Glucose, Blood 60 mg/dL (70-99); Potassium, Blood 4.1 mmol/L (3.5-5.5); Sodium, Blood 145 mmol/L (136-145); Total Protein, Blood 5.4 g/dL (6.4-8.2)
[2019-02-14 05:37] LABS: BAND PERCENT MAN 14 % (0-8); BASOPHILS PERCENT MAN 0 % (0-2); EOSINOPHILS ABSOLUTE MAN 0.25 K/mm3 (0.00-0.68); EOSINOPHILS PERCENT MAN 1 % (0-6); LYMPHOCYTES ABSOLUTE MAN 0.51 K/mm3 (0.84-5.20); LYMPHOCYTES PERCENT MAN 2 % (21-46); MONOCYTES ABSOLUTE MAN 0.25 K/mm3 (0.16-1.47); MONOCYTES PERCENT MAN 1 % (4-13); NEUTROPHILS ABSOLUTE MAN 24.58 K/mm3 (1.96-9.15); SEG NEUTROPHILS PERCENT MAN 82 % (41-73); TOTAL CELLS COUNTED 100
--- NOTE | 2019-02-14 06:16 | NUR ---
SHIFT SUMMARY PT REMAINS INTUBATED WITH VENT SETTINGS AC 16/450/5/30%. PROPOFOL CURRENTLY AT 25 MCG/KG/MIN AND LEVOPHED @ 5 MCG/MIN. PT PASSED MORNING WEAN PER RT. PT CONTINUES TO RESPOND TO VERBAL STIMULI AND IS ABLE TO FOLLOW COMMANDS, SQUEEZING RIGHT HAND, OPENING EYES. PT CONTINUES TO BE TMAX 101, CURRENT TEMP 100.9. PT HAS COPIOUS AMOUNTS OF THIN, CLEAR ORAL SECRETIONS, VERY MINIMAL SECRETIONS SUCTIONED FROM ETT. PT SR-ST WITH PAC'S. ABDOMEN SOFT/DISTENDED WITH HYPOACTIVE BOWEL TONESX4, NO BM THIS SHIFT. BEARD PATENT WITH 1100 CLOUDY AMANDA URINE OUTPUT. MEATUS SHOWS LESSENED BLEEDING THIS SHIFT. INCREASED SCROTAL EDEMA. PT SWITCHED TO D51/2NS 100 ML/HR X 1 BAG THIS AM FOR GLUCOSE LEVEL OF 60. WILL REPORT TO DAYSHIFT NURSE.
--- NOTE | 2019-02-14 12:28 | NUR ---
MAP MAINTAINED > 65 FOR THE PASST HOUR. STOPPED LEVOPHED.
--- NOTE | 2019-02-14 19:48 | NUR ---
SHIFT SUMMARY: PROPOFOL OFF AT 0820 FOR SEDATION VACATION. PATIENT UNAROUSABLE UNTIL ~1100, THEN RESPONDED TO SPEECH AND FOLLOWED COMMANDS. VENT SETTINGS CHANGED TO SPONT, 100% TC, FIO2 30%; SATURATIONS 89-95% DEPENDING ON POSITIONING. TOLERATED WELL UNTIL THIS EVENING WHEN RR BECAME LABORED AND TACHYPNEIC. RT PLACED VENT BACK TO A/C, TV 450, PEEP 5, FIO2 30% AND PROPOFOL RESTARTED TO ALLOW PATIENT TO REST. REPORTED + BLOOD CULTURE X [address] HAN. STARTED TF AT 1800. OFF LEVOPHED AT 1200, MAINTAINING BP 90-120/50-70 AND MAP > 60. GOOD URINE OUTPUT. OGT TO LIS, NO OUTPUT. EXTREMITIES ARE RIGID, MAKES REPOSITIONING DIFFICULT. RESTING COMFOPRTABLY AT END OF SHIFT.
--- NOTE | 2019-02-14 20:00 | NUR ---
ASSUMED CARE OF PT AT 1915. REPORT RECEIVED AT BEDSIDE. PT PRESENTS IN BED. INTUBATED. SETTINGS AC 16, 450, 30 PERCENT FIO2, AND PEEP 5. PT IN NO DISTRESS. NO LEVOPHED AT THIS TIME. BLOOD PRESSURES REMAINS SOMEWHAT LOW, BUT DOES MAINTAIN MAP > 60 AT THIS TIME. WILL REVIEW CHART AND PLAN OF CARE FOR THIS PT.
--- NOTE | 2019-02-15 | NUR ---
DR HAN HAS SEEN PT. ORDERS RECEIVED. DID DISCUSS WITH DR HAN POTENTIAL OF PLACING A DOBHOFF IN AM SECONDARY TO POTENTIAL FOR BEING EXTUBATED IN AM, AND THAT DIFFICULTY OF PLACING OGT. DR HAN GOOD WITH THIS PLAN. DID NEED TO RESTART LEVOPHED FOR BLOOD PRESSURE SUPPORT AT THIS TIME. WILL CONTINUE TO MONITOR FOR ABILITY TO BRING LEVOPHED BACK TO STANDBY.
--- NOTE | 2019-02-15 03:00 | NUR ---
PT OPENS HIS EYES WITH STIMULI. DENIES PAIN BY NODDING HEAD 'NO' TO QUESTION OF PAIN. WILL ATTEMPT DOBHOFF PLACEMENT THIS AM. 5 ML RESIDUALS NOTED FROM OGT. OF NOTE: PT HAS FULL BEDBATH DONE EARLIER AND WAS COOPERATIVE WITH THIS. NOTING THAT PT WAS VERY STIFF WITH REPOSITIONING. TUBE FEEDINGS CONTINUES. PT TOLERATING THIS WELL. WILL CONTINUE TO MONITOR PT.
[2019-02-15 05:12] LABS: Hematocrit 35.2 % (37.0-53.0); Hemoglobin 11.6 g/dL (13.5-17.5); Mean Corpuscular HGB 28.7 pg (26.0-34.0); Mean Platelet Volume 9.9 fL (9.1-12.4); Platelet Count 104 K/mm3 (150-400); RDW Coefficient Variation 13.6 % (11.7-14.2); RDW Standard Deviation 43.8 fL (35.1-46.3); Red Blood Cell Count 4.04 M/mm3 (4.30-5.90); White Blood Cell Count 17.94 K/mm3 (4.00-11.30)
[2019-02-15 05:15] LABS: Mean Corpuscular Volume 87 fL (80-100)
[2019-02-15 05:19] LABS: Anion Gap 8 mmol/L (6-16); Blood Urea Nitrogen 10 mg/dL (8-24); Bun/Creatinine Ratio 17.3 (12.0-20.0); CO2, Blood 22 mmol/L (21-32); Calcium, Blood 7.7 mg/dL (8.5-10.1); Chloride, Blood 111 mmol/L (98-108); Creatinine, Blood 0.58 mg/dL (0.60-1.20); Glomerular Filtration Rate >60 (60-); Glucose, Blood 86 mg/dL (70-99); Potassium, Blood 3.5 mmol/L (3.5-5.5); Sodium, Blood 141 mmol/L (136-145)
[2019-02-15 05:32] LABS: BAND PERCENT MAN 7 % (0-8); BASOPHILS PERCENT MAN 0 % (0-2); EOSINOPHILS PERCENT MAN 0 % (0-6); LYMPHOCYTES ABSOLUTE MAN 0.71 K/mm3 (0.84-5.20); LYMPHOCYTES PERCENT MAN 4 % (21-46); MONOCYTES ABSOLUTE MAN 0.53 K/mm3 (0.16-1.47); MONOCYTES PERCENT MAN 3 % (4-13); NEUTROPHILS ABSOLUTE MAN 16.68 K/mm3 (1.96-9.15); SEG NEUTROPHILS PERCENT MAN 86 % (41-73); TOTAL CELLS COUNTED 100
[2019-02-15 05:45] LABS: PCO2 Arterial 27.8 mmHg (35-45); PO2 Arterial 61.3 mmHg (80-100); pH Blood Arterial 7.48 (7.35-7.45)
--- NOTE | 2019-02-15 07:15 | NUR ---
REPORT GIVEN TO ONCOMING RN'S. PT HAS DOBHOFF RETRACTED AND THEN REPLACED, WITH VERIFICATION USING AIR. PT TO RECEIVE CT OF ABDOMEN THIS AM. GUIDE WIRE REMAINS IN DOBHOFF UNTIL OFFICAL PLACEMENT VERIFIED. PT DOES BECOME FEBRILE THIS AM, AND IS MEDICATED WITH TYLENOL. TEMP MAX 101.8. PT'S HEART RATE ALSO ELEVATES WITH FEVER.
--- NOTE | 2019-02-15 10:00 | NUR ---
DR. EVANS AT BEDSIDE FOR ASSESSMENT.
--- NOTE | 2019-02-15 11:41 | NUR ---
PATIENT'S SON [facility] ARRIVED TODAY. GAVE UPATE ON PT'S CONDITION, ANWERED QUESTIONS.
--- NOTE | 2019-02-15 12:19 | NUR ---
DR. BURGOS AND SON TOMAS HAVING CONFERENCE JUST OUTSIDE THE ROOM. CHEY RN FROM PALLIATIVE CARE ALSO PRESENT.
--- NOTE | 2019-02-15 13:18 | NUR ---
PT TO CT SCAN. PORTABLE MONITOR, O2 TANK, AND AMBU BAG IN USE DURING TRANSPORT [facility] 2 RN AND 2 RT.
--- NOTE | 2019-02-15 13:42 | NUR ---
PATIENT BACK IN ROOM, ABD CT COMPLETE. TOLERATED WELL BY PATIENT. NO ACUTE EVENTS.
--- NOTE | 2019-02-15 13:55 | NUR ---
PT RETURNED FROM CT SCAN OF ABD/PELVIS W/WO CONTRAST. INCREASING TEMPS ONCE MORE- 100.8 AT THIS TIME. ICE PACKS PLACED UNDER AXILLA/NECK, AND FAN BLOWING ON PT.
--- NOTE | 2019-02-15 14:15 | NUR ---
Regional Economic Liaison had extensive conversation with patients son on prognosis and future care needs. Focus was on need for trach and peg and aspiration of secretions and quality of life and treatment and placment at [facility] or higher level care facility versus hospice. Patients son is struggling with what pt has expressed and reviewing care with his uncle. pt has copious oral secretions reveiw with physician scopolamiane and atropine if we intubate patient has possible potential to communicate wishes. review with son that if he continues full treatment and get peg and trach and rehab he may be able to participate inplan of care later. Reviewed CPR and discussion or continued intubation and full treatment but no cpr if an extrodianry event. Review of statistical odds of success and outcomes based on [place] [employer] guidelines. Son needs to leave sunday but will discuss wit uncle. SOn is distraught at pt not going back to [facility] as that is his home. Review with son that we would try to get him trnsferred back if he chooses hospice so he can pass away amoung his friends.
--- NOTE | 2019-02-15 18:35 | NUR ---
UPDATED PT'S SON/2 BROTHERS AT BEDSIDE. THIS RN AND DR BURGOS SPENT EXTENSIVE TIME DISCUSSING PT'S CURRENT STATUS, PROGNOSIS, AND POTENTIAL NEED FOR TRACHEOSTOMY/PEG TUBE/SUPRA-PUBIC CATHETER, R/T CURRENT ILLNESS AND PROGRESSING MS.
--- NOTE | 2019-02-15 20:00 | NUR ---
ASSUMED CARE OF PT AT 1915. REPORT RECEIVED AT BEDSIDE. PT PRESENTS IN BED. VENTED - AC 16, Tv 450, FIO2 30 % PEEP 5. FAMILY PRESENT AND SPEAKING WITH DR BURGOS WHOM IS GIVING UPDATE ON PT AND OPTIONS IN CARE. PT'S BLOOD PRESSURES STABLE AT THIS TIME. WILL REVIEW CHART AND PLAN OF CARE FOR THIS PT.
--- NOTE | 2019-02-15 20:05 | NUR ---
DR. BURGOS AT BEDSIDE FOR ASSESSMENT.
--- NOTE | 2019-02-15 20:06 | NUR ---
SHIFT SUMMARY: ABLE TO FOLLOW SIMPLE COMMANDS THROUGHOUT THE SHIFT, PUPILS EQUAL. RHYTHM SR-ST WITH PACS, BP IMPROVED TO 120/70'S. BREATH SOUNDS IMPROVED IN BILATERAL BASES. ETT SUCTIONING SMALL AMTS OF CLEAR SECRETIONS. STARTED ON LOVENOX. T MAX 101.8; GAVE TYLENOL AND COOLED DOWN WITH ICE PACKS WITH TEMP DECREASING TO 99.6. TOLERATING TF, 0-15 ML RESIDUAL NOTED. VENT SETTINGS: A/C, TV 450, PEEP 5. CBG WNL. DENIED PAIN THROUGHOUT THE SHIFT. SON TOMAS AND BROTHER TOREY ARRIVED TODAY FOR VISIT, RECIEVED UPDATES FROM DR. BURGOS. ABD CT SCAN COMPLETED.
--- NOTE | 2019-02-15 23:28 | NUR ---
ADDENDUM NOTE: AFTER CHEST X RAY WAS DONE THIS AM, NOTED THAT DOBHOFF HAD BEEN PLACED INTO RIGHT MAIN SO DOBHOFF WAS COMPLETELY REMOVED AND PLACEMENT WAS DONE. CONFIRMATION WITH AIR OVER STOMACH, AND WAS REINFORCED BY DR BURGOS ASSESSING CT SCAN. GUIDE WIRE REMAINS IN PLACE, AND DOBHOFF TO BE USED AFTER PT IS EXTUBATED, AND OGT HAS BEEN REMOVED. FAMILY HAS LEFT FOR THE NIGHT. RESIDUAL CHECK FROM OGT WAS 5 ML. WILL CONTINUE TO MONITOR. WHEN ASKED IF PT WAS HAVING ANY PAIN, PT SHAKES HIS HEAD 'NO'. REMAINS WITH LOW GRADE FEVER. WILL MEDICATE IF NEEDED WITH TYLENOL WHEN ABLE.
--- NOTE | 2019-02-16 01:48 | NUR ---
PT RESTING COMFORTABLY IN BED. NO S/S OF APPARENT DISTRESS. PT DEMONSTRATING SOME LOWER BLOOD PRESSURES THAT ARE IN COORELATION OF PT LAYING ON HIS RIGHT SIDE WITH HIS LEFT ARM (WHICH HAS BLOOD PRESSURE CUFF) ELEVATED ABOVE HEART. WILL CONTINUE TO MONITOR WHEN PT IS ROTATED BACK TO HIS LEFT SIDE. NO S/S ADVERSE REACTIONS TO ANTIBIOTIC THERAPY. WILL CONTINUE TO MONITOR. DISCUSSED WITH RT DEPARTMENT PLAN FOR AM WEAN FOR THIS PT.
--- NOTE | 2019-02-16 02:56 | NUR ---
SECONDARY TO PT NOT HAVING BM FOR APPROX 3 DAYS. ADMINISTERED MILK OF MAGNESIA PER OGT. WILL MONITOR FOR AFFECT. HAVE SUCTIONED PT PER ETT WITH RETURN OF CREAM/WHITE COLORED SECRETIONS. PT HAS BEEN MAINTAINING > 90 PERCENT SATURATIONS WITH CURRENT VENT SETTINGS. WILL CONTINUE TO MONITOR.
[2019-02-16 04:34] LABS: BASOPHILS ABSOLUTE AUTO 0.02 K/mm3 (0.00-0.23); BASOPHILS PERCENT AUTO 0 % (0-2); EOSINOPHILS ABSOLUTE AUTO 0.15 K/mm3 (0.00-0.68); EOSINOPHILS PERCENT AUTO 2 % (0-6); Hematocrit 33.5 % (37.0-53.0); Hemoglobin 11.3 g/dL (13.5-17.5); IMMATURE GRAN ABSOLUTE AUTO 0.13 K/mm3 (0.00-0.10); IMMATURE GRAN PERCENT AUTO 1 % (0-1); LYMPHOCYTES ABSOLUTE AUTO 1.15 K/mm3 (0.84-5.20); LYMPHOCYTES PERCENT AUTO 13 % (21-46); MONOCYTES ABSOLUTE AUTO 0.82 K/mm3 (0.16-1.47); MONOCYTES PERCENT AUTO 9 % (4-13); Mean Corpuscular HGB 29.3 pg (26.0-34.0); Mean Corpuscular HGB Conc 33.7 g/dL (31.5-36.5); Mean Corpuscular Volume 87 fL (80-100); Mean Platelet Volume 10.2 fL (9.1-12.4); NEUTROPHILS ABSOLUTE AUTO 6.93 K/mm3 (1.96-9.15); NEUTROPHILS PERCENT AUTO 75 % (41-73); Platelet Count 94 K/mm3 (150-400); RDW Coefficient Variation 13.8 % (11.7-14.2); Red Blood Cell Count 3.86 M/mm3 (4.30-5.90)
[2019-02-16 04:49] LABS: Albumin, Blood 1.9 g/dL (3.4-5.0); Anion Gap 7 mmol/L (6-16); Blood Urea Nitrogen 10 mg/dL (8-24); Bun/Creatinine Ratio 18.7 (12.0-20.0); CO2, Blood 26 mmol/L (21-32); Calcium, Blood 7.7 mg/dL (8.5-10.1); Chloride, Blood 108 mmol/L (98-108); Creatinine, Blood 0.54 mg/dL (0.60-1.20); Glomerular Filtration Rate >60 (60-); Glucose, Blood 95 mg/dL (70-99); Magnesium, Blood 1.6 mg/dL (1.6-2.4); Potassium, Blood 3.4 mmol/L (3.5-5.5); Sodium, Blood 141 mmol/L (136-145)
--- NOTE | 2019-02-16 07:26 | NUR ---
Recieved report from Jose GUERRERO. Patient laying on left side with HOB at 30 degrees. He is intubauted with 7.5 ET and 25cm at lips with settings spont mode PS 5, TV 450, FiO2 30%, PEEP 5.0. He is lightly sedtaed on Propofol and opens eye to verbal stimuli and knods yes /no to questions.He has Dobhoff in left nares infusing Pivot 1.5 at 40ml/hr [id number] water flushes Q4 and less than 20ml residual. He has PICC linewith dressing intact and WNL's and is infusing Propofol at 20mch/kg/min, NS at TKO, and K Phos at 125ml/hr. He has bilateral SCD's in place. He has temp finch 16Fr. draing tea colored urine and temp 100.4. See VS flow sheet.
--- NOTE | 2019-02-16 09:33 | NUR ---
Oral care, repositioned and am care done. Gave meds through OG and rectal. Pataient tolerated well. No changes to vent settings and remains on spont. Remains in bilateral soft wrist, checked skin and circulation and re-applied with positioning. No family.
--- NOTE | 2019-02-16 11:23 | NUR ---
No significant changes with patient. Suctioned white frothy secretions moderate amounts. No vent setting changes. Dr Gregory by and saw patient and wrote new orders. Repositioned to left and slid up in bed. He remains on spont. mode and sats mid to upper 90%'s.
--- NOTE | 2019-02-16 13:47 | NUR ---
Repositioned patient, Oral care. No family as of yet today. Cath care. meds by OG and tolerates well. Minimal residual less than 20ml from OG. He remians on Spont. mode and sats mid to upper 90%'s. He has dark tea colred urine and in adequate amounts.
--- NOTE | 2019-02-16 15:58 | NUR ---
UPDATE Assumed care of pt from Buck GUERRERO at 1430. Febrile. Tylenol given by Buck GUERRERO. This RN applied ice packs to groin and axillae. Will continue to reassess.
--- NOTE | 2019-02-16 17:37 | NUR ---
SUMMARY Pt alert. Follows commands. Opens mouth to assist with oral care. Propofol remains off. Pt remains on spontaneous mode on ventilator, FiO2 30%. SpO2 90% or greater. RR 24-28. Large amount of white frothy sputum suctioned from ETT. Sinus tachycardia per monitor with several PACs. Pt febrile. At this time, he has ice packs to bilateral axillae and cool washcloth to forehead. Tylenol administered. Blood cultures obtained. Foleu catheter in place draining tea colored urine. Pt's son at bedside. Plan of care discussed. Will continue to closely monitor until care handoff and bedside report with oncoming RN.
--- NOTE | 2019-02-16 18:45 | NUR ---
SWITCHED FROM PS TO AC Tidal volumes inconsistent, averaging around 300 mL. RR 31-32. Suctioning performed but not improvement noted. Sp02 90% or greater. RT Willow notified. Switched to AC 16 vT 450, PEEP 5, FiO2 30%. Pt tolerated well. No coughing noted. RR 20-22. SpO2 remained 90% or greater. Pt nods head "no", when asked if he is having pain or discomfort.
--- NOTE | 2019-02-16 19:15 | NUR ---
ASSUME CARE: REPORT RECIEVED FROM DANIS OFF GOING RN. MONITOR INTACT SHOWING SINUS TACH HEART RATE 100'S. VENT SETTINGS AC 16, TV 450, FIO2 30% PEEP 5, RATE 16-20, SPO2 91-94% LUNG SOUNDS CLEAR UPPER LOBES WITH DECREASED SOUNDS IN THE LOWER. 110ML TUBE FEEDING REFED WITH ORAL CARE, LG AMT THIN WHITE/REBOLLEDO SECREATION ORALLY AND PER ETT. ABDOMEN SOFT WITH BOWEL SOUNDS FOUR QUADS. BEARD PATENT DRAINING AMANDA URINE L UPPER EXTREMITY CONTRACTURED MINIMAL MOVEMEN TO R UPPER EXXTREMITY LOWER EXTREMITIES WITH PAS INTACT. REMAINS IN SOFT WR IST RESTRAINTS TO PREENT INADVERTENT REMOVAL OF LINES TUBES. BEARD PATENT DRAINING AMANDA URINE. SON IN TO VISIT CODE WORD ESTABLISHED. CONTINUE TO MONITOR AND REPORT CHANGE IN PATIENT CONDITION.
[2019-02-17 04:24] LABS: BASOPHILS ABSOLUTE AUTO 0.04 K/mm3 (0.00-0.23); BASOPHILS PERCENT AUTO 1 % (0-2); EOSINOPHILS ABSOLUTE AUTO 0.18 K/mm3 (0.00-0.68); EOSINOPHILS PERCENT AUTO 3 % (0-6); Hematocrit 30.8 % (37.0-53.0); Hemoglobin 10.3 g/dL (13.5-17.5); Mean Corpuscular HGB 29.1 pg (26.0-34.0); Mean Corpuscular HGB Conc 33.4 g/dL (31.5-36.5); Mean Corpuscular Volume 87 fL (80-100); Platelet Count 116 K/mm3 (150-400); RDW Coefficient Variation 13.8 % (11.7-14.2); RDW Standard Deviation 44.3 fL (35.1-46.3); Red Blood Cell Count 3.54 M/mm3 (4.30-5.90); White Blood Cell Count 6.44 K/mm3 (4.00-11.30)
[2019-02-17 04:29] LABS: IMMATURE GRAN ABSOLUTE AUTO 0.27 K/mm3 (0.00-0.10); IMMATURE GRAN PERCENT AUTO 4 % (0-1); LYMPHOCYTES ABSOLUTE AUTO 1.19 K/mm3 (0.84-5.20); LYMPHOCYTES PERCENT AUTO 19 % (21-46); MONOCYTES ABSOLUTE AUTO 0.61 K/mm3 (0.16-1.47); MONOCYTES PERCENT AUTO 10 % (4-13); NEUTROPHILS ABSOLUTE AUTO 4.15 K/mm3 (1.96-9.15); NEUTROPHILS PERCENT AUTO 64 % (41-73)
[2019-02-17 04:40] LABS: Anion Gap 5 mmol/L (6-16); Blood Urea Nitrogen 10 mg/dL (8-24); Bun/Creatinine Ratio 20.9 (12.0-20.0); CO2, Blood 29 mmol/L (21-32); Calcium, Blood 7.6 mg/dL (8.5-10.1); Chloride, Blood 108 mmol/L (98-108); Creatinine, Blood 0.48 mg/dL (0.60-1.20); Glomerular Filtration Rate >60 (60-); Glucose, Blood 112 mg/dL (70-99); Phosphorus, Blood 2.1 mg/dL (2.5-4.9); Potassium, Blood 3.1 mmol/L (3.5-5.5); Sodium, Blood 142 mmol/L (136-145)
--- NOTE | 2019-02-17 06:11 | NUR ---
SHIFT SUMMARY: MONITOR INTACT SHOWING SINUS TACH HEART RATE 100'S/ VENT SETTINGS PS PULLING TV GREATER THAN 400. FIO2 30%, RATE 20-24, SPO2 95-97%. ABDOMEN SOFT WITH BOWEL SOUNDS FOUR QUADS. TF PIVOT 1.5 AT 45ML/HR WHICH IS GOAL. THIN ORAL AND ETT SECREATIONS SX FREQUEMTLY.M RESIDUAL OF 150ML REFED WITH ORAL CARE. BEARD PATENT DRAINING AMANDA URINE. PAS TO LOWER EXTREMITIES. COMEPLET BEDBATH WITH LINEN CHANGE REMAINS IS SOFT WRIST RESTRAINTS TO PREVENT INADVERTEMT REMOVAL OF LINES TUBES. UPPER EXTGREMITIES ELEVATED ON PILLOWSM SECONDARY TO GENERALIZED DEPENDENT EDEMA. CONTINUE TO MONITOR AND REPORT CHANGE IN PATIENT CONDIION
--- NOTE | 2019-02-17 09:59 | NUR ---
ASSUMPTION OF CARE PT INTUBATED, NOT ON SEDATION. VENT SET TO PS OF 5, PT OPENS EYES TO VERBAL STIMULI, ABLE TO SQUEEZE HAND AND FOLLOWS SIMPLE COMMANDS. VSS WITH MAPS 60'S-70'S. FINE TREMORS TO UPPER EXTREMITIES NOTED. DR HEIN TO ROOM @ 0900, CHANGED VENT PS FROM 5 TO 8, ATTEMPTED TO COMMUNICATE WITH PT REGARDING PLAN OF CARE, DIFFICULT TO INTERPRET PTS UNDERTANDING. PTS SON TO ROOM @ 0940, DR HEIN DISCUSSED PLAN OF CARE FOR PT. OPTIONS DISCUSSED REGARDING POTENTIAL AGRESSIVE CARE SUCH TRACH, SUPRAPUBIC CATHETER, PEG VS COMFORT CARE. PLAN TO EXTUBATE TODAY, PT REMAINS FULL CODE.
--- NOTE | 2019-02-17 11:30 | NUR ---
[facility] clinical visit: Update obtained from pt's nurses and Drs prior to my visit. Pt has just been extubated. Dr Altamirano had an indepth conversation with pt's son as detailed in his notes. I followed up with pt/son. Introduced myself to both. I asked pt if he could squeeze my hand and he did. I asked him to try and answer yes and no quesions using squeeze for yes answers. When I asked him if he understood my instructions he squeezed my had. I asked him some questions to confirm understanding, ie "is this your son?". Pt answered appropriately. Pt did not exhibit nonverbal indicators of pain at the time of my visit. When I asked him to squeeze my hand if he was hurting he did not. I asked if he understood that he had been intubated and ventilated to help him with his respiratory failure/distress. He squeezed. When I asked him if he would want to be intubated again if needed. Pt did not squeeze my hand and did appear anxious. Conversation shifted for some therapeutic distraction about the trees outside and his son's visit. I am not confident that pt will be able to communicate his wishes clearly to determine his thoughts re: life sustaining measures and goals of care. Pt's son, Carlos present t/o my visit. He is returning home to [place] today. He was given my card and number and I obtained his # and his uncle Kimmy's #. Son states he, his and uncle are doing their best to support pt's previously stated wishes of full code, full tx but that he does not want to go "to far". We discussed different types of code status in detail and what they entailed, DNR, DNI, limited code and full code. Son given booklet, "hard choices for loving people" to help generate conversations with his dad and family members and his dad's care providers. He had some good questions and confirms that at this time, pt to remain a full code, family waiting to see how he does before deciding on additional interventions such as trach, peg tube and suprapubic cath. We discussed pt's cognition, anticipated decline with progressive MS in cognition, swallow, resp status etc. Son verbalizes good understanding of topics covered and discussion with Greta Gregory and Adarsh. Carlos invited to call us if he would like to discuss any of the above further or ask quesitons.
--- NOTE | 2019-02-17 11:54 | NUR ---
EXTUBATION PT EXTUBATED @ 1102. PT TOLERATED WELL, PLACED ON 4L 02 PER NC. PT 02 SATURATIONS HIGH 90'S-100%, TITRATED OFF 02 @ 1140, 02 SATS REMAIN 94-96%. OG DC'D WITH EXTUBATION, DOBHOFF ADVANCED 10CM, WIRE REMOVED, AWAITING XRAY CONFIRMATION TO BEGIN TF.
--- NOTE | 2019-02-17 14:36 | NUR ---
AMA FORM COMPLETED, NURSING PRINTED CIRCUIT BOARD ASSEMBLY REPAIRER NOTIFIED, PROVIDER AWARE.
--- NOTE | 2019-02-17 14:50 | NUR ---
UPDATED DR HEIN, PT HAS WEAK COUGH WITH LARGE AMOUNTS OF SECRETIONS AND DROOLING, WHICH IS NOT NORMAL FOR THE PT PER SON. PT IS ABLE TO SAY 1-2 WORDS AT A TIME AND ANSWER QUESTIONS. TEMP INCREASING TO 101+, WILL MEDICATE WITH PRN TYLENOL. DR HEIN CHECK XRAY FOR PLACEMENT OF DOBHOF AND CONFIRMED PROPER PLACEMENT. PTS CBG'S HAVE BEEN STABLE AND LESS THAN 120 x4 DAYS, Q6H CBG'S DC'D.
--- NOTE | 2019-02-17 19:00 | NUR ---
SHIFT SUMMARY PT IN BED, AWAKE, SLOW TO RESPOND BUT ABLE TO ANSWER AND FOLLOW SIMPLE COMMANDS. PT REMAINS ON ROOM AIR WITH 02 SATS MID-LOW 90'S. EXCESSIVE SECRETIONS NOTED, WEAK COUGH, DIFFICULT TO CLEAR SECRETIONS, DROOLING NOTED, PRN SUCTIONING. PT UP TO CHAIR THIS SHIFT FOR APPROX 3 HOURS, TOLERATED WELL. DOBHOFF IN PLACE, ADVANCED 10CM THIS SHIFT, XRAY TO CONFIRM PLACEMENT, TUBE FEEDINGS AT 25/ml. SOME OOZING FROM MEATUS AROUND BEARD NOTED.
--- NOTE | 2019-02-17 19:00 | NUR ---
ASSUME CARE: REPORT RECIEVED FROM OFF GOING YOLANDA RICE. MONITOR INTACT SHOWING SINUS RHYTHM. HEART RATE 70'S.LUNG SOUNDS COARSE -MOIST WITH OCC COUGH PRODUCTIVE OF THIN CLEAR SECREATIONSL ABLE TO CLEAR TO HES MOUTH DROOLS [place] AMOUNTS. O2 PLACE AT 4/M PER NASAL CANNULA. SPO2 TO94% HAD BEEN DESAATURATING TO 87%. ABDOMEN SOFT WITH BOWEO SOUNDS FOUR QUADSL DOBHOEFF INFUSING PIVOT 1.5 AT 25ML/HR 30ML REFED WITH ORAL CARE. BEARD PATENT DRAINING AMANDA URINE. PAS TO LOWER EXTREMITIS. L UPPER EXTREMITY CONRACTURED. GROSS MOVEMENT TO R UPPER EXTREMITIY. LOWER EXTREMITIES FLACCID. GENERALIZED DEPENDENT EDEMA NOTED. PILLOWS ELEVATING EXTREMITIES. ANSWERS SIMEPLE YES NO QUESTIONS APPROIATLY., AT TIMES EYE FOLLOW MOVEMENTS. CONTINUE TO MONITOR AND REPORT CHANGE IN PATIENT CONDITION
[2019-02-18 04:58] LABS: BASOPHILS ABSOLUTE AUTO 0.04 K/mm3 (0.00-0.23); BASOPHILS PERCENT AUTO 1 % (0-2); EOSINOPHILS ABSOLUTE AUTO 0.28 K/mm3 (0.00-0.68); EOSINOPHILS PERCENT AUTO 4 % (0-6); Hematocrit 34.3 % (37.0-53.0); Hemoglobin 11.3 g/dL (13.5-17.5); IMMATURE GRAN ABSOLUTE AUTO 0.34 K/mm3 (0.00-0.10); IMMATURE GRAN PERCENT AUTO 4 % (0-1); LYMPHOCYTES ABSOLUTE AUTO 0.95 K/mm3 (0.84-5.20); LYMPHOCYTES PERCENT AUTO 12 % (21-46); MONOCYTES ABSOLUTE AUTO 0.55 K/mm3 (0.16-1.47); MONOCYTES PERCENT AUTO 7 % (4-13); Mean Corpuscular HGB 29.3 pg (26.0-34.0); Mean Corpuscular HGB Conc 32.9 g/dL (31.5-36.5); Mean Corpuscular Volume 89 fL (80-100); Mean Platelet Volume 9.4 fL (9.1-12.4); NEUTROPHILS PERCENT AUTO 73 % (41-73); Platelet Count 169 K/mm3 (150-400); RDW Coefficient Variation 14.3 % (11.7-14.2); RDW Standard Deviation 46.2 fL (35.1-46.3); Red Blood Cell Count 3.86 M/mm3 (4.30-5.90); White Blood Cell Count 8.06 K/mm3 (4.00-11.30)
[2019-02-18 05:20] LABS: Magnesium, Blood 2.2 mg/dL (1.6-2.4)
[2019-02-18 05:21] LABS: Albumin, Blood 2.2 g/dL (3.4-5.0); Anion Gap 4 mmol/L (6-16); Blood Urea Nitrogen 12 mg/dL (8-24); Bun/Creatinine Ratio 26.3 (12.0-20.0); CO2, Blood 28 mmol/L (21-32); Calcium, Blood 8.1 mg/dL (8.5-10.1); Chloride, Blood 108 mmol/L (98-108); Creatinine, Blood 0.46 mg/dL (0.60-1.20); Glomerular Filtration Rate >60 (60-); Glucose, Blood 110 mg/dL (70-99); Potassium, Blood 3.7 mmol/L (3.5-5.5); Sodium, Blood 140 mmol/L (136-145)
--- NOTE | 2019-02-18 08:09 | NUR ---
ASSUMPTION OF CARE PT AWAKE IN BED, ANSWERING QUESTIONS APPROPRIATELY, SPEECH IS GARBLED AND SOMETIMES HARD TO UNDERSTAND, APPRECIATIVE OF CARE RECEIVED. PT ON 4L 02 PER NC, TACHYPNEIC AT 20-30 RESP/MIN WITH SHALLOW BREATHS, WEAK COUGH, FINE CRACKLES NOTED TO LLL, DENIES PAIN/DISCOMFORT/DISTRESS, SECRETIONS DECREASED FROM YESTERDAY, 02 SATURATIONS 94-96%. HR 80-90'S, SINUS ARRHYTHMIA WITH SOME PAC AND PVC'S, BP STABLE WITH MAPS 60'S-70'S. PLAN TODAY TO GET PT UP TO CHAIR, ASSIST PT WITH SUCTIONING NEEDED. LAST BM 02/12, PROVIDE BOWEL CARE DIRECTED.
--- NOTE | 2019-02-18 10:29 | NUR ---
DR HEIN IN TO SEE PT AROUND 0830; BIPAP ORDERED AND PLACED BY RT. PT KAREN BIPAP WELL AT THIS TIME. BIPAP 02/15
--- NOTE | 2019-02-18 18:32 | NUR ---
SHIFT SUMMARY PT REMAINS AWAKE AND ALERT T/O SHIFT. PT ON BIPAP EARLIER IN SHIFT, REMOVED DUE TO INTOLERANCE, 02 SATS REMAIN 90'S ON RA, PT IS TACHYPNEIC WITH SHALLOW RESPIRATIONS. VSS. TUBE FEEDING @ GOAL RATE OF 45ml/hr, 3 BM'S TODAY. PT UP TO CHAIR FOR APPROX 3 HOURS THIS SHIFT, PHYSICAL THERAPY IN TO SEE PT TODAY, PHYSICAL THERAPY RECOMENDS GIVING CLOTH/SOFT ITEM FOR PT TO HOLD IN LEFT HAND TO PREVENT SKIN BREAKDOWN FROM CONTRACTURES, MAINTAINING GOOD POSITIONING OF HEAD AND FEET TO PREVENT STIFFNESS.
--- NOTE | 2019-02-18 18:46 | NUR ---
Spiritual Care inital note: Mr. Martinez seems very confused at times. However, he does appear to have lucid moments. He admits to having a life-long affiliation with the [facility] faith community. He states he beleives in a God that loves him. But he is also afraid to . It was unclear to me that Mr. Martinez is able to grasp the implications of the life choices he faces now. I provided gentle classification counselor and guidence towards a God who loves him. We spoke about life after , and Mr. Martinez beleives he will be embraced by God. At times he appeared tearful. I offerd prayer for peace at conclusion of visit and will remain available.
--- NOTE | 2019-02-18 20:54 | NUR ---
ASSUMED CARE OF PT AT 1915. REPORT RECEIVED. PT PRESENTS IN BED. ALERT AND SOMEWHAT ORIENTED. DOES ANSWER SIMPLE QUESTIONS. DENIES DYSPNEA AT THIS TIME. DID PROVIDE YAUNKEUR FOR PT TO BE ABLE TO SUCTION HIS OWN SECRETIONS IF NEEDED. DISCUSSED WITH PT HIS RESPIRATORY STATUS AND USING BIPAP AT NIGHT. ORAL CARE AND OTHER PM CARE DONE FOR THIS PT. ASSISTED WITH TURN IN BED. PT TOLERATES WELL. WILL REVIEW CHART AND PLAN OF CARE FOR THIS PT.
--- NOTE | 2019-02-18 23:25 | NUR ---
PT WAS HAVING DESATURATIONS TO 88 PERCENT WHEN HE FELL ASLEEP. PT PLACED TO BIPAP MASK PER RT. SATURATIONS NOW REMAIN > 90 PERCENT. PT TOLERATES TURNS IN BED WELL. NO COMPLAINTS VOICED. WILL CONTINUE TO MONITOR PT.
--- NOTE | 2019-02-19 03:00 | NUR ---
PT CONTINUES WITH BIPAP MASK. TOLERATES THIS WELL. NO S/S PAIN OR DISTRESS. SATURATIONS MAINTAIN > 90 PERCENT. TUBE FEEDING CONTINUES AT 45 ML/HR. WILL CONTINUE TO MONITOR PT.
[2019-02-19 04:49] LABS: BASOPHILS ABSOLUTE AUTO 0.06 K/mm3 (0.00-0.23); BASOPHILS PERCENT AUTO 1 % (0-2); EOSINOPHILS ABSOLUTE AUTO 0.31 K/mm3 (0.00-0.68); EOSINOPHILS PERCENT AUTO 4 % (0-6); Hematocrit 34.6 % (37.0-53.0); Hemoglobin 11.1 g/dL (13.5-17.5); IMMATURE GRAN ABSOLUTE AUTO 0.31 K/mm3 (0.00-0.10); IMMATURE GRAN PERCENT AUTO 4 % (0-1); LYMPHOCYTES PERCENT AUTO 20 % (21-46); MONOCYTES ABSOLUTE AUTO 0.63 K/mm3 (0.16-1.47); MONOCYTES PERCENT AUTO 8 % (4-13); Mean Corpuscular HGB 28.7 pg (26.0-34.0); Mean Corpuscular HGB Conc 32.1 g/dL (31.5-36.5); Mean Corpuscular Volume 89 fL (80-100); NEUTROPHILS ABSOLUTE AUTO 4.81 K/mm3 (1.96-9.15); NEUTROPHILS PERCENT AUTO 63 % (41-73); Platelet Count 199 K/mm3 (150-400); RDW Coefficient Variation 14.2 % (11.7-14.2); Red Blood Cell Count 3.87 M/mm3 (4.30-5.90); White Blood Cell Count 7.62 K/mm3 (4.00-11.30)
[2019-02-19 05:05] LABS: Magnesium, Blood 2.1 mg/dL (1.6-2.4)
[2019-02-19 05:06] LABS: Anion Gap 4 mmol/L (6-16); Blood Urea Nitrogen 14 mg/dL (8-24); Bun/Creatinine Ratio 28.2 (12.0-20.0); CO2, Blood 29 mmol/L (21-32); Calcium, Blood 7.8 mg/dL (8.5-10.1); Chloride, Blood 106 mmol/L (98-108); Glomerular Filtration Rate >60 (60-); Glucose, Blood 109 mg/dL (70-99); Phosphorus, Blood 2.4 mg/dL (2.5-4.9); Potassium, Blood 3.6 mmol/L (3.5-5.5); Sodium, Blood 139 mmol/L (136-145)
--- NOTE | 2019-02-19 07:05 | NUR ---
REPORT REPORT FROM GIOVANNI GUERRERO. ASSUMED PT CARE. PT RESTING IN POSITION OF COMFORT AT THIS TIME. NADN. PER NOC RN, PT HAD UNEVENTFUL NIGHT. LARGE BM REPORTED, PICC LINE DRESSINGS CHANGED THIS AM. PT KAREN TUBE FEEDS AND BIPAP. CURRENTLY ON 2L O2 PER NC.
--- NOTE | 2019-02-19 07:15 | NUR ---
REMOVED PT FROM BIPAP AND PLACED TO 2 L/M PER NASAL CANNULA. PT MAINTAINS SATURATIONS > 90 PERCENT. BLOOD PRESSURES WNL. OCCASSIONALLY HAVE BEEN LOW AND THIS IS WHEN PT IS TURNED TO HIS SIDE WITH ARM/CUFF ELEVATED ABOVE HEART. PT HAS LARGE BOWEL MOVEMENT THIS MORNING. IS ABLE TO ASSIST SOME WITH TURNS. IS STILL QUITE STIFF. REPORT GIVEN TO ONCOMING RN.
--- NOTE | 2019-02-19 07:30 | NUR ---
RESP THERAPIST TO ROOM FOR ABG. PT TOLERATED WELL.
[2019-02-19 07:41] LABS: PCO2 Arterial 34.9 mmHg (35-45); PO2 Arterial 84.3 mmHg (80-100); pH Blood Arterial 7.52 (7.35-7.45)
--- NOTE | 2019-02-19 07:42 | NUR ---
ASSESSMENT CHARTED. PT ANSWERS QUESTIONS WELL. DENIES PAIN CURRENTLY. PT WATCHING TV. TUBE FEEDS NOTED, INFUSING WELL. ABX STARTED PER EMAR.
--- NOTE | 2019-02-19 08:10 | NUR ---
PT TURNED TO RIGHT SIDE WITH ASSISTANCE FROM OTHER BLANKET WINDER HELPER. PILLOWS PLACED UNDER LEFT SIDE. RIGHT ARM CONTINUES TO BE PROPPED ON PILLOW. PT PILLS CRUSHED AND GIVEN IN APPROX 40CC WARM WATER. FLUSHED WITH 50CC WATER. TUBE FEEDS HELD DURING E BUSINESS PROJECT MANAGER. RESUMED AFTER ADMIN. PT FACE WIPED.
--- NOTE | 2019-02-19 09:26 | NUR ---
PT PULLED UP IN BED, NEW BAG NS STARTED.
--- NOTE | 2019-02-19 10:15 | NUR ---
INCREASED TUBE FEEDS TO 55ML/HR. PT SOILED, PERICARE PROVIDED. LARGE SOFT STOOL. LINENS CHANGED. CATH CARE COMPLETE. PT TURNED TO LEFT SIDE. PILLOWS PLACED UNDER RIGHT SIDE. O2 REMOVED. PT ON RA. SATS 96%. DR LEZAMA TO ROOM. OKAY WITH STATUS CHANGE. WILL DISCUSS WITH DR HEIN.
--- NOTE | 2019-02-19 11:11 | NUR ---
CC HOSPITALIST TO ROOM. PER DR HEIN, PLAN TO GET PT UP TO CHAIR AGAIN TODAY. HAVE SPEECH THERAPY SEE PT. STATUS CHANGE TO PCU.
--- NOTE | 2019-02-19 11:30 | NUR ---
CONSULT SPOKE WITH CARETAKER GROUNDS AT [facility] UROLOGY CONSULT FOR PLACEMENT OF SUPRAPUBIC CATH. DR MEAD TO CALL DR LEZAMA DIRECTLY.
--- NOTE | 2019-02-19 11:53 | NUR ---
UP TO CHAIR PT UP TO CHAIR WITH USE OF LIFT. 1 OTHER STAFF MEMBER PRESENT FOR ASSISTANCE. PT NOW SITTING FACING WINDOW.
--- NOTE | 2019-02-19 12:16 | NUR ---
SPEECH THERAPIST TO ROOM FOR EVAL.
--- NOTE | 2019-02-19 12:35 | NUR ---
UROLOGY UPDATE PER DR LEZAMA WHO SPOKE WITH DR AGUILAR AT [facility]. PT NOT A GOOD CANDIDATE FOR A SUPRAPUBIC CATH. DR AGUILAR STATES THAT THERE IS NO SIGNIFICANT CHANGE IN RISK FOR INF AND PT NOT A GOOD CANDIDATE CURRENTLY. WILL UPDATE DR HEIN.
--- NOTE | 2019-02-19 12:45 | NUR ---
PT WORKED WITH PT WHILE PT IN CHAIR. PT USING CALL LIGHT. ABLE TO PUSH BUTTONS. DENIES PAIN.
--- NOTE | 2019-02-19 12:54 | NUR ---
SPEECH THERAPY UPDATE PT TO STAY NPO. PT NOT ABLE TO FOLLOW COMMANDS RE SWALLOWING. PT LISTS TO RIGHT DUE TO MS. PT UNABLE TO SENSE FOOD IN THROAT.
--- NOTE | 2019-02-19 13:11 | NUR ---
PT MEDICATED WITH MIDODRINE PER EMAR. FLUSHED WITH 30ML WATER. PT SITTING UP IN CHAIR. ORAL CARE DONE.
--- NOTE | 2019-02-19 14:00 | NUR ---
Assumed care from Roe GUERRERO. patient up in chair. Pivot 1.5 continues at 55ml/hr [id number] flushes q4. NS at 100mls. Temp 101.1. He is able to communicate his need
--- NOTE | 2019-02-19 18:45 | NUR ---
Moved patient back to bed using lift and had liquid brown stool. Gave quick bath and changed linen. Hooked back up to monitor. patient able to communicate his needs. He sats mid 90% or RA. Dobhoff secure to left nares and gontinues at goal rate. Family by and had long discussion about plan in Dr Egan note and the refusal of BIPAP by patient. We talked about their idea of possble feeding tube and denial of urology ant [facility] refusing as patient not good candidate. Patient resing in bed.
--- NOTE | 2019-02-19 20:00 | NUR ---
ASSUMED CARE OF PT AT 1915. REPORT RECEIVED AT BEDSIDE. PT PRESENTS IN BED. ALERT AND ORIENTED. MAKES GOOD EYE CONTACT AND RESPONDS TO GREETING AND QUESTIONS. PT IN NO APPARENT DISTRESS AT THIS TIME. NO DYSPNEA. WILL REVIEW CHART AND PLAN OF CARE FOR THIS PT.
--- NOTE | 2019-02-20 | NUR ---
PT TOLERATING TURNS IN BED WITHOUT ISSUES. HAS BEEN INCONTINENT ONCE TO LARGE STOOL. BLOOD PRESSURES REMAIN WITH MAP > 60. HAS MAINTAINED ON ROOM AIR WHEREAS HIS O2 SATURATIONS REMAIN > 90. WILL CONTINUE TO MONITOR.
--- NOTE | 2019-02-20 03:47 | NUR ---
PT REQUIRED TO HAVE 2 LITERS OXYGEN PLACED PER NASAL CANNULA FOR DESATURATIONS TO 87 PERCENT WHILE HE WAS SLEEPING. PT NOW MAINTAINS > 90 PERCENT SATURATIONS. WILL CONTINUE TO MONITOR.
[2019-02-20 04:32] LABS: Hematocrit 32.5 % (37.0-53.0); Hemoglobin 10.5 g/dL (13.5-17.5); Mean Corpuscular HGB 29.1 pg (26.0-34.0); Mean Corpuscular HGB Conc 32.3 g/dL (31.5-36.5); Mean Corpuscular Volume 90 fL (80-100); Mean Platelet Volume 8.8 fL (9.1-12.4); Platelet Count 205 K/mm3 (150-400); RDW Coefficient Variation 13.9 % (11.7-14.2); RDW Standard Deviation 46.3 fL (35.1-46.3); Red Blood Cell Count 3.61 M/mm3 (4.30-5.90); White Blood Cell Count 6.99 K/mm3 (4.00-11.30)
[2019-02-20 04:47] LABS: Anion Gap 3 mmol/L (6-16); Blood Urea Nitrogen 14 mg/dL (8-24); Bun/Creatinine Ratio 30.3 (12.0-20.0); CO2, Blood 29 mmol/L (21-32); Calcium, Blood 7.7 mg/dL (8.5-10.1); Chloride, Blood 110 mmol/L (98-108); Creatinine, Blood 0.46 mg/dL (0.60-1.20); Glomerular Filtration Rate >60 (60-); Glucose, Blood 117 mg/dL (70-99); Magnesium, Blood 2.3 mg/dL (1.6-2.4); Phosphorus, Blood 2.1 mg/dL (2.5-4.9); Potassium, Blood 3.5 mmol/L (3.5-5.5); Sodium, Blood 142 mmol/L (136-145)
--- NOTE | 2019-02-20 06:30 | NUR ---
PT HAS BEEN ABLE TO REST SOME THIS NIGHT. HAS THROUGHOUT SHIFT BEEN MUCH MORE CONVERSANT AND ENGAGING. TOLERATING TUBE FEEDING WELL. URINE OUTPUT REMAINS QS. NO COMPLAINTS OF PAIN OR DISTRESS. DOES HAVE LOOSE COUGH THAT ON OCCASSION IS ABLE TO CLEAR. YAUNKEUR PROVIDED FOR PT TO USE TO CLEAR SECRETIONS. ASSIST WHEN NEEDED. WILL CONTINUE TO MONITOR PT, AND WILL REPORT OFF TO ONCOMING RN.
--- NOTE | 2019-02-20 07:30 | NUR ---
BEGINNING OF SHIFT Assumed care at 0700. Bedside report recieved from Jose GUERRERO. Pt on 3 LPM NC. States he does not wear O2 at baseline. SpO2 98%. Pt alert. Oriented to self and place. Speaks to staff in 1-3 word sentences. Sinus rhythm per monitor. Pt bedfast. 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 Requires Q2H repositioning. Chronic finch in place, hypospadias, erosion noted to ventral penis. Incontinent of stool. Plan to place call to Dr Raza to clairfy bowel care as pt is having large and soft, unformed bowel movements.
--- NOTE | 2019-02-20 11:22 | NUR ---
UPDATE Pt on room air. SpO2 98%. Miralax given. All other bowel care meds changed to PRN per Dr Raza. Dr Raza in to see pt. States pt may be medical floor status. Will change pt to medical floor status if okay with Dr Altamirano.
--- NOTE | 2019-02-20 16:52 | NUR ---
UPDATE Bedbath given. Pt had incontinent void of stool. Linens changed. Pt remains in recliner. Pt remains on room air. No events per heart monitor. Current temp 100.0. Will continue to closely monitor. Pt's friends from [employer] visited to sing to patient. Pt appreciated their visit.
--- NOTE | 2019-02-20 17:56 | NUR ---
SUMMARY Pt has been A&O x 2 for entire shift. Pt is able to make needs known by speaking in 1-3 word sentences. Pt does not call out for staff or utilize call light. Frequent rounding is necessary to meet pt's needs. Pt has been on room air for majority of shift. SpO2 95% or greater. Pt has loose, nonproductive cough. Pt remains strict NPO per recommendation from ST. bhoff has tube Jevity 1.5 infusing, increased from 25 mL/hr to 45 mL/hr at 1700. Tian catheter remains in place due to urinary retention. SR per monitor, no ectopy. BP stable. Pt has had two large, loose BMs today, incontinent. Will continue to closely monitor until care handoff and bedside report with oncoming RN.
--- NOTE | 2019-02-20 20:00 | NUR ---
ASSUMED CARE OF PT AT 1915. REPORT RECEIVED AT BEDSIDE. PT PRESENTS IN BED. ALERT AND MAKES GOOD EYE CONTACT. WILL ANSWER QUESTIONS OF COMFORT AND HOW HIS DAY WAS THIS DAY. TUBE FEEDING CONTIUES AND WILL BE INCREASED TOWARDS GOAL RATE ABLE. PT ON ROOM AIR WHEREAS HE REMAINS > 90 PERCENT SATURATED. DOES HAVE MOIST PRODUCTIVE COUGH THAT IS SUCTIONED WITH YAUNKEUR. WILL REVIEW CHART AND PLAN OF CARE FOR THIS PT.
--- NOTE | 2019-02-20 23:32 | NUR ---
WHEN ADDRESSING PT FOR HIS 2199 TURN, NOTED THAT PT HAD PULLED OUT HIS DOBHOFF. PT ACKNOWLEDGES THAT HE PULLED IT OUT. DOES NOT SAY WHY HE DID THIS. DISCUSSED WITH PT THAT DOBHOFF WOULD NEED TO BE REPLACED TO CONTINUE HIS NUTRITION. RIGHT DOBHOFF ABOUT TO BE PLACED, PT YELLS, "I DON'T WANT IT!" TEACHING DONE ON RATIONALE FOR TUBE SECONDARY TO HIS NOT HAVING SAFE SWALLOW. HE CONTINUES TO CLAIM THAT HE DOES NOT WANT FEEDING TUBE TO BE PLACED. HAD RN MILTON BENAVIDEZ SPEAK WITH PT TO TRY AND HELP HIM UNDERSTAND WHY DOBHOFF IMPORTANT. WHEN DOBHOFF OFFERED BY MILTON, RN PT CONTINUES TO REFUSE. PER PT'S HISTORY HE HAS REFUSED FEEDING TUBE (PEG) AND HAS REFUSED SUPRAPUBIC CATHETERS IN THE PAST. WILL LEAVE OUT DOBHOFF, AND READRESS IN AM. WILL HAVE FAMILY CONTACTED WITH THIS INFORMATION IN AM.
--- NOTE | 2019-02-21 01:03 | NUR ---
PT INCONTINENT TO STOOL. AFTER BEING CLEAN AND NEW ATTENDS PLACE. REPOSITIONED PT. WHEN ASKED IF PT WAS COMFORTABLE, HE STATES, "KIND OF" WHEN ASKED WHAT COULD MAKE HIM FEEL MORE COMFORTABLE HE REPLIED, "IF I WAS IN MY ROOM"
[2019-02-21 04:44] LABS: BASOPHILS ABSOLUTE AUTO 0.05 K/mm3 (0.00-0.23); BASOPHILS PERCENT AUTO 1 % (0-2); EOSINOPHILS ABSOLUTE AUTO 0.26 K/mm3 (0.00-0.68); EOSINOPHILS PERCENT AUTO 4 % (0-6); Hematocrit 31.6 % (37.0-53.0); Hemoglobin 10.2 g/dL (13.5-17.5); IMMATURE GRAN ABSOLUTE AUTO 0.15 K/mm3 (0.00-0.10); IMMATURE GRAN PERCENT AUTO 2 % (0-1); LYMPHOCYTES ABSOLUTE AUTO 1.32 K/mm3 (0.84-5.20); LYMPHOCYTES PERCENT AUTO 19 % (21-46); MONOCYTES ABSOLUTE AUTO 0.59 K/mm3 (0.16-1.47); MONOCYTES PERCENT AUTO 8 % (4-13); Mean Corpuscular HGB Conc 32.3 g/dL (31.5-36.5); Mean Corpuscular Volume 90 fL (80-100); NEUTROPHILS ABSOLUTE AUTO 4.76 K/mm3 (1.96-9.15); NEUTROPHILS PERCENT AUTO 67 % (41-73); Platelet Count 248 K/mm3 (150-400); RDW Coefficient Variation 14.1 % (11.7-14.2); RDW Standard Deviation 46.3 fL (35.1-46.3); Red Blood Cell Count 3.52 M/mm3 (4.30-5.90); White Blood Cell Count 7.13 K/mm3 (4.00-11.30)
[2019-02-21 05:04] LABS: Anion Gap 4 mmol/L (6-16); Blood Urea Nitrogen 13 mg/dL (8-24); Bun/Creatinine Ratio 29.9 (12.0-20.0); CO2, Blood 27 mmol/L (21-32); Calcium, Blood 7.8 mg/dL (8.5-10.1); Chloride, Blood 109 mmol/L (98-108); Creatinine, Blood 0.44 mg/dL (0.60-1.20); Glomerular Filtration Rate >60 (60-); Glucose, Blood 87 mg/dL (70-99); Magnesium, Blood 2.3 mg/dL (1.6-2.4); Potassium, Blood 3.5 mmol/L (3.5-5.5); Sodium, Blood 140 mmol/L (136-145)
--- NOTE | 2019-02-21 05:36 | NUR ---
PT TOLERATES TURNS IN BED WELL. HAS REMAINED ON ROOM AIR THROUGHOUT THE NIGHT. SPOT CHECKS OF OXYGEN SATURATIONS REVEAL SATURATIONS REMAINING AT 90 PERCENT AND ABOVE. PT HAS OCCASSIONAL MOIST COUGH. HAS BEEN MUCH MORE CONVERSANT THIS NIGHT. MENTIONED BEFORE, UNFORTUNATELY PT HAD PULLED OUT HIS DOBHOFF AND REFUSED TO HAVE DOBHOFF REPLACED. PT VERY ADAMENT THAT HE DID NOT WANT THE FEEDING TUBE TO BE REPLACED. EVEN AFTER MUCH EXPLANATION AND ENCOURAGEMENT. WILL CONTINUE TO MONITOR PT, AND WILL REPORT OFF TO ONCOMING RN.
--- NOTE | 2019-02-21 07:17 | NUR ---
ASSUMED CARE REPORT FROM YOLANDA DAVILA. PATIENT SAYS "I'M FINE" WHEN ASKED ABOUT PAIN.
--- NOTE | 2019-02-21 08:58 | NUR ---
PT BATHED, OOB TO CHAIR. JV FROM PHYSICAL THERAPY IN
--- NOTE | 2019-02-21 09:03 | NUR ---
PATIENT CONTINUES TO REFUSE DOBHOFF TUBE. HE WANTS TO EAT AND TAKE HIS PO MEDS BY MOUTH.
--- NOTE | 2019-02-21 09:17 | NUR ---
SPEECH THERAPY IN.
--- NOTE | 2019-02-21 09:30 | NUR ---
PER SPEECH THERAPY, PATIENT STILL CANNOT COUGH, EVEN THOUGH HE SAYS HE CAN. REMAINS NPO
--- NOTE | 2019-02-21 11:33 | NUR ---
Clinical Visit: Pt alert. He is oriented to self, president. He states that he does know the year and where he is at, however, he cannot tell me those answers. He seems to answer readily to answers that he does know. Reviewed concerns. Explained to pt the concerns of his swallowing. Instructed that the speech evaluation he had this morning told us that he wasn't swallowing well enough to protect his lungs from food going into them. He had a tube in his nose to give him nutrition because of this concern. He does not remember pulling it out of his nose. Asked pt if he has been eating foods that he wants in the place that he lives, he states 'yes.' Explained carefully that sometimes infections in the lungs can happen if he is unable to swallow safely and food goes into his lungs. Instructed that this is the reason that he isn't able to eat right now, is because of this concern. He says, "makes sense." Pt is aware that he has declined a surgically placed tube in his stomach in the past to give him nutrition this way, in attempt to protect his lungs from his weak swallow. Instructed that some patients have made the decision that they WILL accept the risk of this infection and possibly dying from this kind of infection because they value the quality of their lives over the quantity of their days of life. Instructed that this kind of care is comfort care and hospice services. Pt states, "yes" [he understands]. He doesn't answer that he would like this type of plan. Asked if he would want to be intubated again if he had more problems with his lungs and he states, "no." Reviewed chest compressions and shocks to his heart if there was problems with his heart and he does not answer either way to this question on whether he would like us to attempt this. Asked about intubation again and he again reiterates in the same way, "no, I do not want that." It appears that pt remains quiet on the questions that he is still thinking about, but is clear about some things, such as intubation. It is unclear how much he completely understands about comfort care and hospice care. Unclear how much he will absorb from the conversation. Concepts were explained in clear language, in a slow manner. Pt does deny pain throughout conversation, but is silent on inquiry related to his anxiety level. Discussed with nurse Juli. Reviewed pt's ability to make decisions regarding his care. It is unclear how much he understands of options of comfort care and hospice. Updated Juli on pt's repeated refusals of being intubated again. She plans on calling the son to update on current issues. Will remain available.
--- NOTE | 2019-02-21 13:07 | NUR ---
MD VISIT DR. LEZAMA IN
--- NOTE | 2019-02-21 13:07 | NUR ---
PATIENT CONTINUES TO REFUSE HAVING FEEDING TUBE.
--- NOTE | 2019-02-21 13:14 | NUR ---
SPOKE TO SON, TOMAS, ON THE PHONE. HE IS BACK HOME IN [facility]. UPDATED HIM ON PATIENT'S REFUSAL OF FEEDING TUBE. HE WILL TRY TO CALL TO TALK TO THE PATIENT LATER.
--- NOTE | 2019-02-21 17:43 | NUR ---
REPORT GIVEN TO YOLANDA MEDINA. PATIENT RETURNED TO BED BY GABY BACK USING LIFT AND WILL TX TO 333 IN BED.
--- NOTE | 2019-02-21 17:47 | NUR ---
PATIENT WILL GO TO 335 INSTEAD BECAUSE OF LIFT. ROOM IS BEING CLEANED
--- NOTE | 2019-02-21 18:39 | NUR ---
PT TRANSFERED. PT TRANSFERED AT 1830. PT IN STABLE CONDITION WITH VSS. PT ORIENTED TO ROOM. CALL LIGHT IN REACH.
--- NOTE | 2019-02-22 04:57 | NUR ---
SHIFT SUMMARY: 64 Y/O MALE RESTED COMFORTABLY ALL SHIFT, TURNED AND REPOSITIONED AND ORAL CARE PROVIDED EVERY 2 HOURS BY STAFF, ABLE TO VOIDE 1-2 WORDS AT TIME ONLY, ALL EXTREMITIES ARE CONTRACTED WITH MINIMAL MOVEMENT NOTED, CONTINUES TO BE NPO WITH IV .9NS INFUSING AT 100ML/HR VIA RIGHT UPPER ARM PICC LINE, BEARD DRAINING CLEAR YELLOW FLUID, NPO AT THIS TIME, DENIES PAIN OR NAUSEA, BED LOW POSITION, CALL LIGHT AT SIDE.
--- NOTE | 2019-02-22 14:20 | NUR ---
Pt visit this afternoon. Pt is resting in bed upon arrival. Engaged in therapeutic discussion regarding goals of care. Discussed options to choose from. Educated on each option to choose from including repercussions and risk factors involved. Pt reports not liking his options and needs more time to think about. Pt tearful at times during visit and this RN offered emotional support. Offered gentle voice and therapeutic touch by holding hand and rubbing shoulder. Offered to call son and Pt denies need. No other concerns reported at this time. Pt is agreeable for Palliative Care to F/U tomorrow. Called and spoke with Dr Raza. Palliative Care nurse note from yesterday and Dr Raza's note from today discussed Pt's code status wishes. Changed code status to DNI per V/O from Dr Raza. Palliative Care will remain available.
--- NOTE | 2019-02-22 17:54 | NUR ---
HE IS COOPERATIVE. HE HAS HAD A COUPLE OF VISITORS FROM HIS QUAKER TODAY. THE SPEECH THERAPIST EVALUATED HIM AGAIN TODAY. HE REMAINS NPO. CPN JUST STARTED. PICC IS PATENT AND DRAWS BLOOD OK FROM THE [facility] [place]. KPHOS GIVEN IV TODAY FOR LOW PHOS LEVEL. CHRONIC BEARD DRAINS CLOUDY YELLOW URINE. PAS ON BILAT. HE HAS BEEN TURNED REGULARLY THROUGHOUT THE DAY. VSS. HE DOESN'T TALK MUCH BUT HAS BEEN APPROPRIATE. THE ST SAYS SHE FEELS HE DOES NOT REMEMBER INFO OR INSTRUCTIONS FROM ONE DAY TO THE NEXT. IT IS DIFFICULT TO TELL HOW MUCH HE UNDERSTANDS. CONTACT ISOLATION CONTINUES.
--- NOTE | 2019-02-23 04:34 | NUR ---
SHIFT SUMMARY: PT IS ALERT AND ORIENTED WITH LITTLE VERBAL RESPONSE, THIS IS HIS BASELINE MENTATION. PT IS BED BOUND AND REQUIRES A LIFT FOR TRANSFERS, TURNS Q2H. BEARD PATENT AND DRAINING YELLOW URINE. CPN RUNNING ORDERED. PT SHOWS NO S/S FOR PAIN, NAUSEA, VOMITING, OR SOB. PT SLEPT MUCH OF THE NIGHT WHEN NOT DISTURBED. NO ACUTE CHANGES OR COMPLICATIONS THIS SHIFT. BED IN LOW POSITION, CALL LIGHT WITHIN REACH. WILL REPORT TO DAY NURSE.
[2019-02-23 06:02] LABS: Anion Gap 7 mmol/L (6-16); Blood Urea Nitrogen 12 mg/dL (8-24); Bun/Creatinine Ratio 25.8 (12.0-20.0); CO2, Blood 26 mmol/L (21-32); Calcium, Blood 8.3 mg/dL (8.5-10.1); Chloride, Blood 105 mmol/L (98-108); Creatinine, Blood 0.47 mg/dL (0.60-1.20); Glomerular Filtration Rate >60 (60-); Glucose, Blood 105 mg/dL (70-99); Magnesium, Blood 2.3 mg/dL (1.6-2.4); Potassium, Blood 3.6 mmol/L (3.5-5.5); Sodium, Blood 138 mmol/L (136-145); Triglycerides 188 mg/dL (30-160)
--- NOTE | 2019-02-23 13:54 | NUR ---
Pt visit this afternoon. Pt is resting in bed and denies pain at this time. Engaged in discussion regarding goals of care. Asked Pt if he has considered his choices with Pt responding "what choices". Reminded Pt of his inability to swallow safely and the choice of feeding tube surgically placed or going back home on hospice so he can continue to eat. Explained that some people chose hospice so they can continue to eat knowing it will shorten their life. Explained that some people choose the feeding tube so they can live longer. Pt responds with statement "I'm not playing this game". Reassured Pt this is not a game. Attempted to assess Pt's orientation. Pt responds to question of place by stating the rest home. When asked for reason for hospital stay and current year, Pt does not respond. Called and spoke with facility nurse at [facility]. He reports no MPOA or decision maker listed on file. Called and spoke with Dr Raza and discussed case. Dr Raza is agreeable with palliative care placing ethics consult and speaking with Pt's son to assist Pt with decsion. Attempted to contact delonte Gonzalez by phone. Left message with a request for a return phone call. Palliative Care will remain available.
--- NOTE | 2019-02-23 15:38 | NUR ---
Received call from bedside nurse Sol and she reports family contacted staff member from [facility] in whom Pt trusts. Staff member is currently at bedside. Pt is resting in bed upon arrival. He appears comfortable with no S/S of distress at this time. Pt actually appears more alert and is less somnolent. Camila Fonseca staff member Teri is at bedside. Teri reports having discussion with Pt and he has elected for Peg-Tube placement. Confirmed with Pt if these are his wishes and Pt states "yes". Educated Pt that feeding tube will take the place of him eating, drinking, and taking his medications. Pt confirms this his still his wish. Teri educated Pt that if he chooses to eat and drink he would have to sign a waver. Pt confirms understanding. No other concerns reported at this time. Called and spoke with Dr Raza. Relayed conversation with Camila Fonseca staff member, Pt, and this RN. Reported Pt's wishes for Peg-Tube placement. Dr Raza reports she will place provider consult. Palliative Care will remain available.
--- NOTE | 2019-02-23 17:58 | NUR ---
PALLIATIVE CARE SAW HIM TWICE TODAY. REEMA FROM [facility], AFTER RECEIVING A CALL FROM ISABELL'S BROTHER, ALSO VISITED HIM. ISABELL TRUSTS HER AND DISCUSSED A FEEDING TUBE OR NOT WITH HER. HE HAS DECIDED HE WANTS TO LIVE, BE A FULL CODE, HAVE A PEG PLACED AND GO BACK TO [facility]. NPO. CPN INFUSING BY PICC. CHRONIC BEARD DRAINS HAZY YELLOW URINE. CONTACT ISLATION ONGOING FOR ESBL IN THE URINE. KPHOS GIVEN. PHOS LEVEL RECHECKED, IMPROVED. HE HAS BEEN TURNED. NO SKIN BREAKDOWN. HE HAS VERY OILY SKIN ON HIS FACE AND HEAD. GI CONSULT HAS BEEN CALLED TO 'S ANSWERING SERVICE THIS AFTERNOON.
--- NOTE | 2019-02-23 18:38 | NUR ---
WAS JUST HERE TO CONSULT WITH THE PATIENT. ISABELL SAID HE WANTS TO THINK ABOUT IT SO SAID HE HAS NO PLANS TO PROCEED AT THIS TIME.
--- NOTE | 2019-02-24 04:21 | NUR ---
SHIFT SUMMARY: PT IS ALERT AND ORIENTED. PT HAS FLAT AFFECT WITH MINIMAL VERBAL RESPONSE, PT HAS MS AT BASELINE. PT IS BEDBOUND, TURNS Q2H. BEARD PATENT AND DRAINING YELLOW URINE. FLUIDS RUNNING ORDERED. PT SLEPT MUCH OF THE NIGHT WHEN NOT DISTURBED. PT DENIES PAIN, NAUSEA, VOMITING, AND SOB. NO ACUTE CHANGES OR COMPLICATIONS THIS SHIFT. BED IN LOW POSITION, CALL LIGHT WITHIN REACH. WILL REPORT TO DAY NURSE.
[2019-02-24 06:53] LABS: Anion Gap 6 mmol/L (6-16); Blood Urea Nitrogen 16 mg/dL (8-24); Bun/Creatinine Ratio 32.2 (12.0-20.0); CO2, Blood 26 mmol/L (21-32); Calcium, Blood 8.7 mg/dL (8.5-10.1); Chloride, Blood 105 mmol/L (98-108); Glomerular Filtration Rate >60 (60-); Glucose, Blood 104 mg/dL (70-99); Magnesium, Blood 2.5 mg/dL (1.6-2.4); Phosphorus, Blood 2.2 mg/dL (2.5-4.9); Sodium, Blood 137 mmol/L (136-145)
--- NOTE | 2019-02-24 09:57 | NUR ---
ASKED TWICE IF HE WISHES DOBHOFF REPLACED IN HIS NARES AND STS NO. ALSO ASKED IF HE WANTED A FEEDING TUBE AND STS "NOT AT THIS TIME." EXPLAINED WHAT BOTH ENTAILED.
--- NOTE | 2019-02-24 10:57 | NUR ---
Received call from bedside nurse Keisha. She reports Pt has decided against a Peg-Tube placement. Reviewed chart notes. Dr Magaña visited with Pt yesterday and Pt reported to Dr Magaña he did not want peg tube placement and wanted to think about it. Yesterday Pt had friend/staff member from [facility] come and discuss options and Pt had elected for the tube placement. Visited with Pt this AM. He is resting in bed and denies pain at this time. Pt appears comfortable wit no S/S of distress at this time. Discussed options for plan of care with Pt. Pt reports he does want to proceed with Peg-Tube placement. Pt appears forgetful at times and his level of understanding is quesitonable. Spoke with Dr Sykes and discussed case. Dr Sykes is agreeable for Ethics Consult. Placed ethics consult and palliative care will remain available.
--- NOTE | 2019-02-24 13:28 | NUR ---
Ethics consult order received and processed. Case file reviewed and discussion facilitated with palliative care RN, Speech Therapist and managing provider. The pennie is a 64 y/o gentleman with a complex medical history who could clinically benefit from percutaneous nutrition and hydration because of his impaired swallow function / high risk of aspiration. He has vascillated to some extent on his amenability to surgical therapy but is thought to be of compromised or questionable cognitive intactness. The principal has a valid POLST instrument on file which indicates a clear preference for tube feeding. Speech Therapy has conducted a mini-cognitive assessment which suggests that Mr Martinez struggles to fully demonstrate medical understanding, risk appreciation, ability to consitently communicate choice without strong guidance and lacks fair reasoning ability. Suri Garcia, PT, reports that when told that he will without the treatment, Mr Martinez is agreeable to surgery. Given his previously documented wishes in the POLST, in combination with [facility] legistlative support for presumptive consent in cases of incapacitation when medically feasible (ORS 127.580), I would recommend proceeding with the intervention. Speech Therapy is of the firm opinion that Mr Martinez will likely go along with the surgical / treatment plan, as long as the simple message that he will " without it" is compassionately but plainly reinforced. Please review Suri Maharaj assessment. Thank you for this consult, Brenton Clifford ThD
--- NOTE | 2019-02-24 18:33 | NUR ---
ALERT. FLAT AFFECT. APPEARS WITHDRAWN. CHRONIC BEARD TO GRAVITY. FLUIDS PER EMAR TO PICC. CONTRACTURES AND VERY STIFF EXTREMITIES. TURNED Q 2 HOURS. HAD VISIT FROM LATTER DAY FRIENDS WITH ONE STATING HE HAS TOLD HIM THAT "HE IS TIRED OF ALL THIS." HAS NOT MADE A DECISION ON DOBBHOFF OR PEG TUBE. ED IN LOW POSITION. WCTM.
--- NOTE | 2019-02-25 04:54 | NUR ---
VIDEO PRODUCTION ENGINEER SUMMARY NO ACUTE CHANGES THIS SHIFT. PT AAOX2. PT REQUIRES ASSISTANCE WITH REPOSITIONING Q2H D/T MS. PT DENIES PAIN. PT REMAINS WITHDRAWN AND SOMETIMES DOES NOT RESPOND TO STAFF AT ALL. PO MEDS HELD PT IS NPO. VSS, WILL CONTINUE TO MONITOR.
[2019-02-25 06:44] LABS: Anion Gap 8 mmol/L (6-16); Blood Urea Nitrogen 19 mg/dL (8-24); Bun/Creatinine Ratio 38.2 (12.0-20.0); CO2, Blood 24 mmol/L (21-32); Chloride, Blood 108 mmol/L (98-108); Glomerular Filtration Rate >60 (60-); Glucose, Blood 97 mg/dL (70-99); Magnesium, Blood 2.5 mg/dL (1.6-2.4); Phosphorus, Blood 3.3 mg/dL (2.5-4.9); Potassium, Blood 4.3 mmol/L (3.5-5.5); Sodium, Blood 140 mmol/L (136-145)
--- NOTE | 2019-02-25 17:53 | NUR ---
ALERT. UNLABORED RESPIRATIONS. IS AWARE WILL HAVE SURGERY TOMORROW MORNING FOR PEG TUBE PLACEMENT AND IS AGREEABLE. SOMETIMES DOES NOT ANSWER QUESTIONS, JUST STARES. NO ACUTE CHANGES. WCTM.
--- NOTE | 2019-02-26 05:15 | NUR ---
PARTS REMOVER SUMMARY NO ACUTE CHANGES THIS SHIFT. PT REMAINS NPO DUE TO ASPIRATION RISK. RECIEVING PPN VIA PICC LINE. PT TO HAVE PEG TUBE PLACED LATER TODAY BY DR MONTALVO. PT VOIDING VIA BEARD CATHETER. HAS HAD BM THIS SHIFT. VSS, WILL CONTINUE TO MONITOR.
--- NOTE | 2019-02-26 07:11 | NUR ---
PICKED UP FROM MEDICAL FLOOR ROOM 335. AND BROUGHT TO [facility]. PATIENT SAYS "NO WAY", WHEN INFORMED ABOUT PROCEDURE. BROUGHT TO [facility] TO DISCUSS WITH DOCTOR
--- NOTE | 2019-02-26 07:31 | NUR ---
PATIENT REFUSED PROCEDURE AND TAKEN BACK TO ROOM BY CHRISTIANO CABRERA RN
--- NOTE | 2019-02-26 09:27 | NUR ---
Received call from Dr Sykes and discussed case. Dr Sykes reports Pt went for procedure and refused last minute. Dr Sykes reports goals of care will need to be revisited. Pt is resting in bed upon arrival. Pt denies pain and appears comfortable with no S/S of distress. Engaged in discussion regarding goals of care. Confirmed with Pt of refusing Peg-Tube placement. Attempted to discuss reasons for refusal. Pt does not respond when asked for reason. Discussed other option of going back to [facility] on hospice. Pt states "yes" when asked if he wants to go back to [facility] on hospice. Educated on hospice philosophy. Level of understanding is questionable but Pt is still agreeable. Discussed case with Dr Sykes including Pt's inability to understand decisions. Dr Sykes calls blaise Gonzalez and discussed case. Blaise Gonzalez chooses back to [facility] on hospice. Dr Sykes will place Pt on comfort measures until Pt discharges from hospital. This RN called blaise Gonzalez and discussed goals of care. Assessed Carlos's understanding of hospice philosophy. Carlos reports experiencing hospice with his grandparents. Discussed hospice agencies to choose from and Carlos chooses [facility]. Instructed Carlos to contact Palliative Care with any quesitons or concerns. Left message with [facility] Liason Kaci regarding family's choice. Spoke with jens Ag and discussed case. Palliative Care will remain available.
--- NOTE | 2019-02-26 17:28 | NUR ---
Shift Summary A/O to self. Pleasant and cooperative with care. Up in chair x 1 via lift. Pt on puree diet and feeder. Code status changed, pt is now comfort care, DNR band on L wrist. Plan is to discharge tomorrow back to [facility]. Incontinent of BM x 2 this shift. Chronic finch in place and draining well. Pt declined to have PEG tube placed. No other acute changes this shift.
--- NOTE | 2019-02-26 22:15 | NUR ---
ORAL CARE COMPLETE. PTIENT REPOSITIONED
--- NOTE | 2019-02-27 00:31 | NUR ---
PATIENT REPOSITIONED AND ORAL CARE PERFORMED.
--- NOTE | 2019-02-27 05:48 | NUR ---
SHIFT SUMMARY NO ACUTE EVENTS OVERNIGHT. PATIENT TOOK MEDICATION CRUSHED IN APPLESAUCE. SLEPT THROUGH THE NIGHT. TURNED Q2H. ORAL CARE PROVIDED. WILL CONTINUE TO MONITOR AND REPORT TO ON COMING SHIFT.
[2019-02-27] MEDS ORDERED: SENN187 PO (10:50)
[2019-02-27] MEDS ORDERED: ATROPINE SULFATE2 ML SL (10:54)
[2019-02-27] MEDS ORDERED: LORA2 PO (11:04)
[2019-02-27] MEDS ORDERED: MORP20L SL (11:06)
[2019-02-27] MEDS ORDERED: Phenergan25 MG PR (11:07)
--- NOTE | 2019-02-27 11:31 | NUR ---
Pt visit this AM. Pt is resting in bed and appears more somnolent and lethargic today. Pt does not respond verbally. Spoke with caremanager Zhu and discussed case. Spoke with [facility] Liason Kaci and discussed case. Kaci reports Pt's son Carlos has decided against hospice. Called and spoke with Pt's son Carlos. Wilkinson reports staff member Teri visited with Pt yesterday and reported to Wilkinson that Pt was more alert and able to make decisions. Teri reported to Wilkinson that Pt does not want hospice. Educated Wilkinson of Pt's disease process and his inability to make decisions. Wilkinson reports that Camila Fonseca can have Pt sign waiver in order for him to conitnue eating and drinking. Educated Wilkinson the risks involved including aspiration and continued hospital visits. Wilkinson reports no other concerns at this time. Palliative Care will remain available.
--- NOTE | 2019-02-27 12:50 | NUR ---
Discharge Summary AO to self. [facility] to admit via gurney and ambulance transfer. Report called and given to Kiana. Pt currently on Puree diet and a feeder. PICC line removed by charge operator. Foley patent and draining well. Belongings sent with patient.
== END 2019-02-27 12:43 | DRG 698 ==
LOC: ER 18:39 → MEDS 23:23 → ICUW 23:23 → MEDS 02-21 18:29 → EDPENDDIS 02-27 10:56 → ENPENDDIS 02-27 10:56 → MEDS 02-27 12:43
PROVIDERS: Emergency Medicine; Internal Medicine; Internal Medicine Critical Care Medicine; Nurse Practitioner Acute Care; ADMIT Internal Medicine
PROC: 0BH17EZ Insertion of Endotracheal Airway into Trachea, Via Natural or Artificial Opening (ICD-10-PCS; principal; 2019-02-11)
PROC: 5A1955Z Respiratory Ventilation, Greater than 96 Consecutive Hours (ICD-10-PCS; 2019-02-11)
PROC: 0DB68ZX Excision of Stomach, Via Natural or Artificial Opening Endoscopic, Diagnostic (ICD-10-PCS; 2019-02-13)
DX: T83.511A Infection and inflammatory reaction due to indwelling urethral catheter, initial encounter (principal); A41.89 Other specified sepsis; J69.0 Pneumonitis due to inhalation of food and vomit; R65.21 Severe sepsis with septic shock; J96.01 Acute respiratory failure with hypoxia; G93.41 Metabolic encephalopathy; Z16.12 Extended spectrum beta lactamase (ESBL) resistance; F20.0 Paranoid schizophrenia; N39.0 Urinary tract infection, site not specified; R31.0 Gross hematuria; E83.39 Other disorders of phosphorus metabolism; E87.6 Hypokalemia; I05.0 Rheumatic mitral stenosis; Z99.3 Dependence on wheelchair; N31.2 Flaccid neuropathic bladder, not elsewhere classified; K59.09 Other constipation
CPT/HCPCS: 31500; 31720; 36415; 36569; 36600; 51702; 71045; 74018; 74177; 80048; 80053; 80069; 80202; 81001; 82803; 82947; 83605; 83735; 83880; 84100; 84478; 84484; 85014; 85018; 85025; 85027; 87040; 87070; 87077; 87086; 87186; 87205; 88305; 88342; 92523; 92526; 92610; 93005; 93010; 94002; 94003; 94644; 94660; 94770; 96365-59; 96367-59; 96375-59; 97110; 97162; 97166; 97530; 99291-25; 99292; C1751; C9113; J0153; J0171; J0330; J0696; J1650; J2185; J2250; J2405; J2704; J2930; J3010; J3370; J3411; J3480; J7030; J7042; J7050; J7060; J7120; P9046; Q9967

== ENCOUNTER 2019-03-10 08:01 | Inpatient (IN) | payer OTHER ==
[~2019-03-10] VITALS: Ht 172.7 cm; Wt 70.6 kg
[~2019-03-10 08:01] MED LIST changes: +ATROPINE SULFATE2 ML SL; +LORA2 PO; +MORP20L SL; +Phenergan25 MG PR; +SENN187 PO
[2019-03-10] MEDS ORDERED: GLYCERIN1 EACH PR (08:06)
[2019-03-10] MEDS ORDERED: LINZESS145 MCG PO (08:06)
[2019-03-10] MEDS ORDERED: MAGNESIUM OXID500 MG PO (08:06)
[2019-03-10] MEDS ORDERED: PERIDEX15 ML PO (08:07)
[2019-03-10] MEDS ORDERED: MIRALAX17 GM PO (08:07)
[2019-03-10] MEDS ORDERED: QUET200 PO (08:07)
[2019-03-10] MEDS ORDERED: CENTRUM SILVER1 EAC2 PO (08:07)
[2019-03-10] MEDS ORDERED: BISA5EC PO ×2 (08:08→08:09)
[2019-03-10] MEDS ORDERED: Seroquel Xr50 MG PO (08:08)
[2019-03-10] MEDS ORDERED: Senna Plus Tab1 EACH PO (08:09)
[2019-03-10] MEDS ORDERED: SORBITOL1 ML PO (08:09)
[2019-03-10] MEDS ORDERED: ATROPINE SULFATE2 ML PO (08:10)
[2019-03-10] MEDS ORDERED: Ativan1 MG PO (08:10)
[2019-03-10] MEDS ORDERED: Morphine S20 MG/5 ML PO (08:12)
[2019-03-10] MEDS ORDERED: Norco 10-325 T1 EACH PO (08:12)
[2019-03-10] MEDS ORDERED: ONDA4 PO (08:13)
[2019-03-10] MEDS ORDERED: PROM25S PR (08:13)
[2019-03-10 08:57] LABS: Source, Urine Catheter
[2019-03-10 09:02] LABS: Blood, Urine 4+ (Neg); Glucose Qualitative, Urine Neg (Neg); Ketones, Urine 1+ (Neg); Leukocyte Esterase, Urine 3+ (Neg); Nitrite, Urine Neg (Neg); Protein, Urine 3+ (Neg); Specific Gravity, Urine 1.015 (1.003-1.022); Urobilinogen, Urine 2+ (Normal)
[2019-03-10 09:15] LABS: Bilirubin, Urine 1+ (Neg)
[2019-03-10 09:16] LABS: Appearance, Urine Cloudy (Clear); Color, Urine Yellow (P-Yellow); White Blood Cells, Urine 50-100 /hpf (0-5)
[2019-03-10 09:17] LABS: Bacteria Many /hpf; Mucus Light (0-Heavy); Squamous Epithelial Cells Rare /hpf (Few)
[2019-03-10 09:36] LABS: BASOPHILS ABSOLUTE AUTO 0.08 K/mm3 (0.00-0.23); BASOPHILS PERCENT AUTO 0 % (0-2); EOSINOPHILS PERCENT AUTO 0 % (0-6); Hemoglobin 16.7 g/dL (13.5-17.5); IMMATURE GRAN ABSOLUTE AUTO 0.25 K/mm3 (0.00-0.10); IMMATURE GRAN PERCENT AUTO 1 % (0-1); LYMPHOCYTES ABSOLUTE AUTO 1.56 K/mm3 (0.84-5.20); LYMPHOCYTES PERCENT AUTO 6 % (21-46); MONOCYTES PERCENT AUTO 4 % (4-13); Mean Corpuscular HGB 28.1 pg (26.0-34.0); Mean Corpuscular HGB Conc 28.5 g/dL (31.5-36.5); Mean Corpuscular Volume 99 fL (80-100); Mean Platelet Volume 10.8 fL (9.1-12.4); NEUTROPHILS ABSOLUTE AUTO 24.83 K/mm3 (1.96-9.15); NEUTROPHILS PERCENT AUTO 89 % (41-73); Platelet Count 255 K/mm3 (150-400); RDW Coefficient Variation 14.4 % (11.7-14.2); RDW Standard Deviation 52.7 fL (35.1-46.3); Red Blood Cell Count 5.94 M/mm3 (4.30-5.90); White Blood Cell Count 27.92 K/mm3 (4.00-11.30)
[2019-03-10 09:37] LABS: Hematocrit 58.5 % (37.0-53.0)
[2019-03-10 09:44] LABS: International Normalized Ratio 1.34; Prothrombin Time Results 13.8 Sec (9.7-11.5)
[2019-03-10 09:55] LABS: Alanine Aminotransfer (ALT/SGP 117 U/L (12-78); Albumin, Blood 3.1 g/dL (3.4-5.0); Albumin/Globulin Ratio 0.5 (0.8-1.8); Alk Phos 146 U/L (50-136); Anion Gap 9 mmol/L (6-16); Aspartate Aminotrans (AST/SGOT 75 U/L (12-37); Bilirubin, Total 1.8 mg/dL (0.1-1.0); Blood Urea Nitrogen 63 mg/dL (8-24); Bun/Creatinine Ratio 51.2 (12.0-20.0); CO2, Blood 20 mmol/L (21-32); Calcium, Blood 8.5 mg/dL (8.5-10.1); Chloride, Blood 134 mmol/L (98-108); Creatinine, Blood 1.23 mg/dL (0.60-1.20); Glomerular Filtration Rate >60 (60-); Glucose, Blood 127 mg/dL (70-99); Sodium, Blood 163 mmol/L (136-145); Total Protein, Blood 9.1 g/dL (6.4-8.2)
--- NOTE | 2019-03-10 10:39 | NUR ---
Brief Pt visit in his ED room. Significant tremors noted on BLUE and Pt is on non-rebreather O2. Pt denies pain at this time. Spoke with ED DEPUTY FIRE CHIEF Sabino and discussed case. Sabino reports speaking with Pt's son and plan is to admit Pt and code status will be DNR. Spoke with ED program planner Chela and discussed case. Palliative Care will F/U with Pt once he is admitted to the floor.
[2019-03-10 11:14] LABS: Magnesium, Blood 2.6 mg/dL (1.6-2.4); Phosphorus, Blood 3.9 mg/dL (2.5-4.9)
--- NOTE | 2019-03-10 12:32 | NUR ---
PATIENT ADMITTED TO ICU 2 BY VERONICA LEMA RN. REPORT FROM ER WAS FROM YOLANDA THAO. PATIENT IS IN CONTACT ISOLATION FOR MRSA AND ESBL IN URINE
[2019-03-10 12:49] LABS: Anion Gap 4 mmol/L (6-16); Blood Urea Nitrogen 60 mg/dL (8-24); Bun/Creatinine Ratio 54.5 (12.0-20.0); CO2, Blood 23 mmol/L (21-32); Calcium, Blood 7.7 mg/dL (8.5-10.1); Chloride, Blood 137 mmol/L (98-108); Glomerular Filtration Rate >60 (60-); Glucose, Blood 114 mg/dL (70-99); Potassium, Blood 3.4 mmol/L (3.5-5.5); Sodium, Blood 164 mmol/L (136-145)
[2019-03-10] MEDS ORDERED: BISA10S PR (13:04)
[2019-03-10] MEDS ORDERED: Fleet Enema132 ML PR (13:06)
[2019-03-10] MEDS ORDERED: Magnesium Citr296 ML PO (13:11)
[2019-03-10] MEDS ORDERED: ACET325 PO (13:19)
[2019-03-10] MEDS ORDERED: ANTOXYBENA TOP (13:23)
--- NOTE | 2019-03-10 13:43 | NUR ---
Prior to Pt visit spoke with Brenton Clifford from ethics committee and discussed case. Spoke with bedside nurse Juli and discussed case. Spoke with career technical education teacher Marko and discussed case. Pt is resting in bed and is minimally responsice. He is able to answer some yes and no questions other rodriguez does not respond. Pt denies pain at this time. Tremors noted and skin is warm to the touch. Called and spoke with Camila Fonseca Director Employment Teri. Requested copy of [employer] POLST completed. Teri reports she will fax palliative care a copy. Palliative Care will remain available.
--- NOTE | 2019-03-10 16:33 | NUR ---
CHAPLAIN CARDOZA IN WITH PATIENT.
--- NOTE | 2019-03-10 16:52 | NUR ---
Spiritual Care inital note: This morning, Mr. Martinez was non-responsive to voice or touch. This afternoon, I sat at bedside, holding his hand and praying. He opened his eyes to look at me, shook head 'no' to pain, and fell back to sleep. He appears comfortable. Skin is warm to touch. Political Science Professor Services will remain available.
--- NOTE | 2019-03-10 18:12 | NUR ---
CALLED DR. RODRIGUEZ WITH INCREASED SODIUM. ORDERS FOR D5 1/4NS
--- NOTE | 2019-03-10 18:40 | NUR ---
SHAKES HIS HEAD NO TO PAIN QUERY, BUT CRIES OUT WITH TURNS. D5 1/4 NS AT 100 ML/HR CONCURRENT WITH KCL. CONTINUES WITH NRB IN PLACE
--- NOTE | 2019-03-10 21:52 | NUR ---
ASSUMED CARE OF PT, REPORT RCV'D FROM YOLANDA NICHOLS. PT OPENS EYES TO VERBAL STIMULUS BUT QUICKLY FALLS BACK TO SLEEP, FAILS TO FOLLOW COMMANDS, MOANS WITH REPOSITIONING, DOES NOT RESPOND TO QUESTION REGARDING PAIN. PT LAYING IN RIGHT LATERAL POSITION WITH NON REBREATHER 15L IN PLACE. PT'S SKIN HOT TO THE TOUCH, FLUSHED AND MOIST. D5 1/4NS @ 100 ML/HR. TEMP BEARD PATENT AND DRAINING DARK YELLOW URINE. SPOKE TO [facility] CAR CUSTOMIZER WILLIAMS ROBERTSON. PER DON, FACILITY SUPPORTS PLAN FOR PT TO REMAIN ON HOSPICE. FACILITY HAS BEEN COMMUNICATING REGULARLY WITH PT'S SON AND BROTHER TO DETERMINE PLAN OF CARE FOR PT. PT'S FAMILY HAD BEEN UNDECIDED BUT CHANGED PT'S CODE STATUS TO DNR/DNI TODAY. CAR CUSTOMIZER TOLD THAT [facility] WILL LIKELY HOLD ANOTHER ETHIC CONSULT TO DETERMINE PLAN OF CARE. SEE FULL SHIFT ASSESSMENT
--- NOTE | 2019-03-11 00:35 | NUR ---
MIDSHIFT SUMMARY PT ALERT TO VERBAL STIMULUS, PT ABLE TO FOLLOW COMMAND TO SQUEEZE HAND AND SHAKE HEAD "NO" IN RESPONSE TO PAIN QUESTION. PT FEBRILE WITH TMAX 100.0. FAN BLOWING ON PT TO DECREASE TEMP. WILL ADMINISTER TYLENOL NEEDED. WILL CONTINUE TO MONITOR.
[2019-03-11 03:14] LABS: BASOPHILS ABSOLUTE AUTO 0.09 K/mm3 (0.00-0.23); BASOPHILS PERCENT AUTO 0 % (0-2); EOSINOPHILS PERCENT AUTO 0 % (0-6); Hematocrit 49.2 % (37.0-53.0); Hemoglobin 14.2 g/dL (13.5-17.5); IMMATURE GRAN ABSOLUTE AUTO 0.16 K/mm3 (0.00-0.10); IMMATURE GRAN PERCENT AUTO 1 % (0-1); LYMPHOCYTES ABSOLUTE AUTO 2.15 K/mm3 (0.84-5.20); LYMPHOCYTES PERCENT AUTO 9 % (21-46); MONOCYTES ABSOLUTE AUTO 0.86 K/mm3 (0.16-1.47); MONOCYTES PERCENT AUTO 4 % (4-13); Mean Corpuscular HGB Conc 28.9 g/dL (31.5-36.5); Mean Corpuscular Volume 97 fL (80-100); Mean Platelet Volume 11.2 fL (9.1-12.4); NEUTROPHILS ABSOLUTE AUTO 19.88 K/mm3 (1.96-9.15); NEUTROPHILS PERCENT AUTO 86 % (41-73); Platelet Count 192 K/mm3 (150-400); RDW Coefficient Variation 14.8 % (11.7-14.2); RDW Standard Deviation 53.1 fL (35.1-46.3); Red Blood Cell Count 5.07 M/mm3 (4.30-5.90); White Blood Cell Count 23.14 K/mm3 (4.00-11.30)
[2019-03-11 03:36] LABS: Alanine Aminotransfer (ALT/SGP 72 U/L (12-78); Albumin, Blood 2.5 g/dL (3.4-5.0); Albumin/Globulin Ratio 0.5 (0.8-1.8); Alk Phos 117 U/L (50-136); Anion Gap 1 mmol/L (6-16); Aspartate Aminotrans (AST/SGOT 32 U/L (12-37); Bilirubin, Total 0.9 mg/dL (0.1-1.0); Blood Urea Nitrogen 40 mg/dL (8-24); Bun/Creatinine Ratio 44.5 (12.0-20.0); CO2, Blood 28 mmol/L (21-32); Chloride, Blood 137 mmol/L (98-108); Glomerular Filtration Rate >60 (60-); Glucose, Blood 115 mg/dL (70-99); Potassium, Blood 3.7 mmol/L (3.5-5.5); Sodium, Blood 166 mmol/L (136-145); Total Protein, Blood 7.5 g/dL (6.4-8.2)
--- NOTE | 2019-03-11 06:02 | NUR ---
SHIFT SUMMARY NO ACUTE CHANGES OVERNIGHT. PT DROWSY BUT AROUSABLE TO VERBAL STIMULI. PT FOLLOWS COMMANDS TO SQUEEZE HAND AND ANSWERS QUESTIONS APPROPRIATE WITH HEAD NOD "YES/NO". PT FEBRILE WITH TMAX 100.4, CURRENT TEMP 99.1. PT HAD ONE INCONTINENT MEDIUM LOOSE BOWEL. 700 ML DARK YELLOW URINARY OUTPUT. PLEASE SEE MIDSHIFT ASSESSMENT. WILL REPORT TO DAYSHIFT NURSE.
--- NOTE | 2019-03-11 09:00 | NUR ---
ASSUMPTION OF CARE: PT AWAKE, MOANS WITH REPOSITIONING, STATES WHEN IS IN PAIN. PT ON OXIMYZER ON 8L. SATTING >90%. SR WITH PACS. HR 90S, SBP 100S. BEARD IN PLACE. BEARD IS CHRINIC AND PT HAS EROSION TO THE TIP OF PENIS. PT HAS UNSTAGEABLE PRESSURE SORE TO COCCYX AND BUTTOCKS-PICTURES IN CHART. PT HAS 22G IV TO L AND R WRIST. R WRIST INFUSING WITH D5 1/4NS AT 100ML/HR. NO ACUTE CHANGES AT THIS TIME. WILL CONTINUE TO MONITOR.
--- NOTE | 2019-03-11 11:45 | NUR ---
Pt resting in bed and denies pain at this time. Pt is A&O to self only. When Pt was asked current place, Pt states "At the rest home", when asked current year Pt states "1962". Pt responds "yes" when asked if he is comfortable. Skin warm to touch and rigors noted. Spoke with bedside nurse and discussed case. Spoke with Dr Sykes and discussed case. Called and spoke with Pt's son Carlos and discussed goals of care. Suggested the importance for consideration of quality of life and comfort vs hospital stay and being back at the facility with familiar staff. Carlos reports understanding and is still attempting process inforamation. Carlos answers questions regarding Pt's clinical status with current admission and similarities from previous admission. Deferred questions to Dr Sykes and Carlos requests a call from Dr Sykes after making his rounds. Carlos reports no other concerns at this time. Relayed request to bedside nurse for Dr Sykes to contact delonte Gonzalez. Palliative Care will remain available.
[2019-03-11 13:06] LABS: Vancomycin, Trough 16.6 ug/mL (5.0-10.0)
--- NOTE | 2019-03-11 13:32 | NUR ---
PT ASKING FOR A WATER HOWEVER PT IS NPO. BECAME AGITATED WHEN I TOLD HIM HE COULD HAVE A MOISTENED MOUTH SWAB. PT BECAME TACHYCARDIAC WITH HR IN 130S. TEMP REMAINS ELEVATED HOWEVER IT IS SLOWLY LOWERING. WILL CONTINUE TO MONITOR
--- NOTE | 2019-03-11 16:01 | NUR ---
SHIFT SUMMARY: PT ALERT TO SELF. ABLE TO VERBALIZE PAIN. MOANS WHEN REPOSITIONING. ON OXIMYZER AT 8L SATTING>90%. LUNG SOUNDS CLEAR IN UPPER LOBES, DIMINISHED IN BASES. SR WITH OCC PACS. SBP IN 100S. OCCASIONAL TACHYCARDIA. PT IS NPO CURRENTLY. TEMP BEARD IN PLACE DRAINING YELLOW URINE. DUE TO CHRONIC BEARD PLACEMENT THERE IS SOME EROSION OF THE PENIS. HYPOACTIVE BOWEL TONES. NO BM TODAY. UNSTAGEABLE PRESSURE ULCER TO COCCYX AND BUTTOCKS. PT IS CURRENTLY DNR/DNI AND ON COMFORT MEASURES. REPORT GIVEN TO RN ON MEDICAL FLOOR.
--- NOTE | 2019-03-11 16:34 | NUR ---
TRANSFER: PT TRANSPORTED TO 313 WITH RN. ALL BELONGINGS TRANSFERRED WITH PT. PT TOLERATED TRANSFER WELL.
--- NOTE | 2019-03-11 16:54 | NUR ---
SHIFT SUMMARY 1615 RECEIVED PT TO 313 VIA BED FROM ICU 2. RECEIVED REPORT FROM AL GUERRERO, PT WITH HX OF MS AND WAS SUPPOSE TO BE ON HOSPICE AT . PT ON C/C AT THIS TIME AND TO RETURN TO TOMORROW ON HOSPICE. PT MOSTLY NONVERBAL AND VERY STIFF WITH CONTRACTURES IN ALL EXTREMITIES. CHRONIC BEARD CATH WITH EROSION TO PENIS AND PRESSURE ULCERS TO BUTTOCKS AND COCCYX AREA. PT TO WITH OXIMIZER ON 8L O2. CLAMMY AND DIAPHORETIC WITH ICE PACKS UNDERS ARMS. PT DENIED BEING TO WARM, REPORTED "I'M OK". DENIED PAIN AT THIS TIME. CALL LT IN REACH.
--- NOTE | 2019-03-11 17:46 | NUR ---
PT'S SON, TOMAS, IS DECISION MAKER. LIVES IN [place]; [phone]
--- NOTE | 2019-03-11 18:40 | NUR ---
Spiritual Care inital note: Mr. Martinez opens eyes to voice. He denies pain and nodded 'yes' to prayer. He denies fear. Mainly, though, he wanted a drink of water. At time of visit, Mr. Martinez was NPO. Pt fell back to sleep immediately and appears in no distress. I will remain available.
--- NOTE | 2019-03-11 19:59 | NUR ---
03/11/191954 RESTING IN BED AND STATED "NO " WHEN ASKED IF HAVING ANY DISCOMFORT OR PROBLEMS. O2 AT 8LPM VIA OXIMIZER. NO DISTRESS NOTED. SOFE MUSIC TURNED ON FOR RELAXATION.
--- NOTE | 2019-03-12 01:39 | NUR ---
03/12/19 0000 DENIES PAIN. ORAL AND BACK CARE GIVEN. MEPILEX DRESSING INTACT TO COCCYX AREA. SOFT MUSIC VIA TV ON.
--- NOTE | 2019-03-12 01:45 | NUR ---
03/12/19 0145 REPOSITIONED TO LEFT SIDE WITH PILLOWS. ORAL CARE GIVEN.
--- NOTE | 2019-03-12 04:56 | NUR ---
03/12/19 0400 PT SLEEPING WITHOUT DISTRESS. UNEVENTFUL NIGHT.
--- NOTE | 2019-03-12 06:33 | NUR ---
03/12/19 0615 REPOSITIONED TO OTHER SIDE. ORAL AND BEARD CARE GIVEN. DENIES ANY DISCOMFORT THIS SHIFT. TV MUSIC ON FOR RELAXATION.
--- NOTE | 2019-03-12 08:45 | NUR ---
PT AWAKE, NON RESPONDANT. DOES NOT ANSWER QUESTIONS. PT PRESENTS SOME WARMNESS. REMOVED 2 BLANKETS. CLEANED MOUTH WITH SWABS. TURNED PT TO SIDE. TV AVAIL TO WATCH. BED IN LOW POSITION, CALL LITE IN REACH, BED ALARM ON FOR SAFETY.
--- NOTE | 2019-03-12 10:39 | NUR ---
Comfort Care Visit: Pt resting in bed and denies pain at this time. Voice is quiet and speeach is difficult to understand. Skin is warm to the touch. Spoke with bedside nurse Wallace and discussed case. Spoke with HH&H Liadelonte Clemons and discussed case. Palliative Care will remain available.
--- NOTE | 2019-03-12 14:55 | NUR ---
FULL BEDBATH WITH AIDE. PT ROLLED SEVERAL TIMES. MED FOR PAIN/DISCOMFORT. PT RELAXING BETTER.
--- NOTE | 2019-03-12 16:39 | NUR ---
Spiritual Care routine visit: Mr. Martinez was sleeping, but awakend to voice and touch. He denied pain and nodded "yes' to prayer. When asked if he was at peace with what was happening, he nodded 'yes." Prayer for a peaceful transition provided. I will remain available.
--- NOTE | 2019-03-12 16:56 | NUR ---
PT RESTING AT THIS TIME. HAS HAD BED BATH TODAY. HAS BEEN NONVERBAL TODAY. MEDICATED FOR PAIN/DISCOMFORT THIS AFT. PRESENTS MORE RELAXED, ARBEN IN FACE AND BODY RELAXATION. GRUNTS AFFIRMATION THAT IS BETTER. CONTINUE TO MONITOR. BED IN LOW POSITION, CALL LITE IN REACH, BED ALARM ON FOR SSAFETY
--- NOTE | 2019-03-12 22:53 | NUR ---
COMFORT CARE LATE ENTRY FOR 1999: CHEEKS APPEAR RED AND HOT TO TOUCH. DIAPHORETIC, TACHYPNEIC BUT NOT AIR HUNGRY, EYES RED. NO VERBALIZATIONS IN RESPONSE TO MY QUESTIONS/CONVERSATION. EYES WIDE OPEN, MAKING EYE CONTACT. PRN TYLENOL GIVEN. KAREN WELL. REPOSITIONED, PERFORMED ORAL CARE AND WIPED SKIN DOWN. CATH PATENT AND DRAINING DARK, TEA COLORED URINE. PERSONAL CARES COMPLETED. LATE ENTRY FOR 2199: ONLY SOME IMPROVEMENT FROM TYLENOL. SKIN STILL WARM TO TOUCH. DIAPHORETIC AND TACHYPNEIC- NO AIR HUNGER. NO RESPIRATORY DISTRESS. EYES OPEN AND MAKING EYE CONTACT HOWEVER NO VERBAL RESPONSE. MM'S DRY. ROXANOL ADMINISTERED ORDERED.
--- NOTE | 2019-03-13 02:13 | NUR ---
COMFORT CARE: EYES OPEN, MAKING EYE CONTACT. MUSCLE TREMORING NOTED. TREMORING REDUCES AFTER SEVERAL MINUTES WITH PT. MORPHINE ADMINISTERED ORDERED FOR SUSPECTED PAIN. RESTING CALMLY IN BED. SKIN STILL WARM, BUT HAS COOLED COMPARED TO START OF SHIFT. WILL REASSESS PAIN S/S HALF HOUR AFTER ADMINISTRATION.
--- NOTE | 2019-03-13 04:10 | NUR ---
SHIFT SUMMARY: PT CURRENTLY SLEEPING, EYES CLOSED, RESPS REGULAR, NON-LABORED. SKIN WARM. HAS BEEN REPOSITIONED WITHIN THE LAST 2 HOURS AND RECIEVED PRN ANALGESIC 2 HOURS AGO. APPEARS COMFORTABLE AT THIS TIME. F/C PATENT AND DRAINING TEA COLORED URINE. PT HAS REMAINED NON-VERBAL THROUGH THE NIGHT BUT HAS CONSISTENTLY MADE EYE CONTACT WHENEVER AWAKE. EYES RED. MUCOUS MEMEBRANES DRY. ORAL CARE COMPLETED FREQUENTLY THROUGH THE NIGHT. ORAL SECRETIONS HAVE DECREASED. BED LOW. LIGHTS DIM. MUSIC PLAYING QUIETLY AT BEDSIDE.
--- NOTE | 2019-03-13 07:28 | NUR ---
PT RESTING QUIETLY POSITIONED TO R SIDE. EYES OPEN HOWEVER NONVERBAL, MAKES NO RESPONSES TO STIM. SKIN WARM, WAXY. LUE TREMOR NOTED. NO S/S PAIN OR ANXIETY @ THIS TIME. BEARD PATENT MANNIE AMANDA URINE. WILL MX & PROVIDE COMFORT CARE.
--- NOTE | 2019-03-13 09:46 | NUR ---
DR CARDOZA IN TO SEE PT, [facility] WILL PLACE ORDERS TO TRANSFER BACK TO [facility]. WELDER EXPLOSION PROVIDE PARTIAL BEDBATH & ORAL CARE. IV D/C INTACT. [facility] CALLED FOR REPORT HOWEVER RN UNAVAIL @ THIS TIME. THEY WILL CALL BACK FOR REPORT. HOSPICE D/C SDC TEACHER [facility] TRANSPORTATION ARRANGED FOR [address] [facility] VIA [employer]. PT CONTINUES NONVERBAL, EYES OPEN, NO RESPONSES. NO S/S PAIN @ THIS TIME.
--- NOTE | 2019-03-13 10:19 | NUR ---
Comfort Care Visit: Pt resting in bed upon arrival. Pt tracks with his head and eyes but is non verbal. Respirations labored and skin is warm to the touch. Spoke with bedside nurse Franco, discussed case and reviewed comfort medications. [facility] and discussed case. Pt is scheduled to discharge back home to [facility] this AM. Palliative Care will remain available.
[2019-03-13] MEDS ORDERED: Transderm-Scop1 EACH TD (10:22)
--- NOTE | 2019-03-13 10:44 | NUR ---
REPORT CALLED TO [facility] RN, CHERRIE. PALLIATIVE CARE RN IN TO SEE PT. PRN ROXANOL 10MG & TYLENOL SUPP GIVEN FOR COMFORT CARE. AWQAITING [facility] FOR TRANSFER.
== END 2019-03-13 11:10 | DRG 698 ==
LOC: ER 08:01 → ICUW 11:32 → ICUE 11:37 → MEDS 03-11 16:10 → ENPENDDIS 03-13 09:53 → MEDS 03-13 11:10
PROVIDERS: Emergency Medicine; Nurse Practitioner Acute Care; ADMIT Internal Medicine
DX: T83.511A Infection and inflammatory reaction due to indwelling urethral catheter, initial encounter (principal); A41.9 Sepsis, unspecified organism; G92 Toxic encephalopathy; R65.21 Severe sepsis with septic shock; J69.0 Pneumonitis due to inhalation of food and vomit; J96.01 Acute respiratory failure with hypoxia; E87.0 Hyperosmolality and hypernatremia; F20.0 Paranoid schizophrenia; E87.1 Hypo-osmolality and hyponatremia; N39.0 Urinary tract infection, site not specified; L89.320 Pressure ulcer of left buttock, unstageable; L89.310 Pressure ulcer of right buttock, unstageable; G89.4 Chronic pain syndrome; G35 Multiple sclerosis; Z51.5 Encounter for palliative care; R13.10 Dysphagia, unspecified; Z66 Do not resuscitate; K59.09 Other constipation; E86.0 Dehydration
CPT/HCPCS: 36415; 51702; 71045; 80048; 80053; 80202; 81001; 82330; 82550; 83605; 83735; 84100; 84295; 85025; 85610; 85730; 87040; 87077; 87086; 87186; 93005; 93010; 94640; 96361-59; 96365-59; 99285-25; J1650; J2185; J2270; J3370; J3480; J7030; J7042; J7050